=== PATIENT | male | born 1985 | race Caucasian/White ===

== ENCOUNTER → 2020-07-08 07:52 | Outpatient (REF) | payer BC, SELFPAY ==
--- NOTE | ~2020-07-08 | NM_ITS ---
Exercise Myocardial perfusion study Indication: Chest pain to evaluate for myocardial ischemia Technique: The patient was brought in for an exercise perfusion study on 07/08/2020. Patient performed exercise as per Danny protocol and was injected 45 mCi of sestamibi was given intravenously one target HR was achieved. Images were obtained using the SPECT gamma camera interlaced with the gating device. Images were obtained in supine position. Resting perfusion study was performed on 07/09/2020. Patient was administered 45 mCi of sestamibi intravenously at rest. Images were then obtained in supine position. Images obtained with and without CT attenuation. Total DLP 166 mGy-cm. Images were processed with the software and compared side to side in short axis, horizontal long axis and vertical long axis views. Findings: The stress perfusion study showed non attenuated images show minimal thinning of the basal inferior wall of the LV myocardium. Remainder of the LV myocardium is normally perfused. Attenuation corrected images show mildly reduced uptake in the apex of the LV myocardium.. The gated study shows normal LV systolic function with calculated LVEF of 63%. LV cavity is normal in size. The gated study shows normal systolic wall thickening and contraction of all segments. There is no transient ischemic dilation. Resting study shows no clear significant change in perfusion pattern compared to stress perfusion study. Gating at rest reveals normal systolic wall motion with ejection fraction at 56%. The findings are consistent with normal myocardial perfusion. NM/NM baldev perf SPECT rest & str Impression: 1. Normal myocardial perfusion 2. Gated LVEF is 63% 3. Transient ischemic dilatation not present Stress EKG is negative for ischemia
--- NOTE | 2020-07-08 08:00 | CA_ITS ---
Acquisition Time: 2020-07-08 08:22:08 Total Exercise Time: 00:10:27 Test Indications: ABN EKG Medications: SEE CHART Protocol: ADONIS Max HR: 162 BPM 87% of Pred: 186 BPM Max BP: 190/068 mmHG Max Work Load: 12.4 METS Exercise stress test with exercise 10 min 27 sec of Adonis protocol, without anginal symptoms, without arrythmia, with normotensive response to exercise, without EKG changes meeting criteria for ischemia. Nuclear images pending. Test reviewed with Dr Dinh. Referred By: Ibrahima Dela Cruz Overread By: LLOYD FITCH
== END ==
LOC: HO.CARD 07:52
PROVIDERS: Visit Provider Internal Medicine Cardiovascular Disease
DX: R07.9 Chest pain, unspecified (principal)
CPT/HCPCS: 78452; 93016; 93017; 93018; A9500

== ENCOUNTER → 2020-08-07 09:39 | Outpatient (REF) | payer BC, SELFPAY ==
--- NOTE | 2020-08-07 09:47 | CA_ITS ---
Transthoracic Echocardiogram Patient (Last, First, Middle): Tim Morocho, Gender: Male Date of : 1985 Age: 35 Procedure Date: 08/07/2020 Procedure Type: Transthoracic Echocardiogram Location: OP Height: 177.8 cm Weight: 131.09 kg BSA: 2.44 m2 Heart Rate: bpm BP: 130 / 80 mmHg Medical Attendant: JOANN Haley MD: Ibrahima Dela Cruz MD Pan Pusher: Miah Adams MD Symptoms: ABN. ECHO Study Quality: Fair ECG Rhythm: Sinus Conclusions: - 1. Limited echocardiogram with definity was performed, showing normal LV systolic function with no wall motion abnormality Findings Procedure Information The patient receives contrast. Left Ventricle Normal left ventricular size, thickness, and systolic function. The visually estimated ejection fraction is between 60-65%. There is no evidence of regional wall motion abnormalities. Prior Study Comparison No prior study available for comparison. Measurements 2D Systolic Function EF 4C: 78.80 >55% EF 2C: 46.40 >55% EF BiP: 64.20 >55% Updated in Other Vendor System with Status of Final Miah Adams MD electronically signed on 08/07/2020 10:53:24 AM with status of Final
== END ==
LOC: HO.CARD 09:39
PROVIDERS: Visit Provider Internal Medicine Cardiovascular Disease
DX: R93.1 Abnormal findings on diagnostic imaging of heart and coronary circulation (principal)
CPT/HCPCS: 93308; Q9957

== ENCOUNTER 2021-02-12 13:54 | Outpatient (REF) | payer BC, SELFPAY | END 2021-02-12 13:55 | disposition home or self-care (01) | LOC: HO.HMGCLDS 13:54 | PROVIDERS: Visit Provider Internal Medicine | DX: Z20.822 Contact with and (suspected) exposure to COVID-19 (principal) | CPT/HCPCS: C9803; U0003; U0005 ==

== ENCOUNTER 2021-10-09 14:30 | Emergency (ER) | payer BC, SELFPAY ==
--- NOTE | ~2021-10-09 | XR_ITS ---
EXAMINATION: XR CHEST CLINICAL INFORMATION: Dyspnea COMPARISON: None TECHNIQUE: Frontal view of the chest was obtained. FINDINGS: Cardiac leads overlie the chest. The lungs are well expanded. There is no focal consolidation, edema, or effusion. No pneumothorax. The cardiomediastinal silhouette is within normal limits. No acute osseous abnormality. XR/XR chest 1V IMPRESSION: Clear lungs.
[2021-10-09 14:37] VITALS: BP 106/61; BP 110/74; PULSE 87; PULSE 93; RESP 16; TEMP 36.9; O2SAT 95; O2SAT 98; BMI 39.5
--- NOTE | 2021-10-09 14:42 | ECG_ITS ---
Test Reason : Dizziness Blood Pressure : / mmHG Vent. Rate : 081 BPM Atrial Rate : 081 BPM P-R Int : 220 ms QRS Dur : 100 ms QT Int : 358 ms P-R-T Axes : 046 -35 034 degrees QTc Int : 415 ms Sinus rhythm with 1st degree A-V block Left axis deviation Minimal voltage criteria for LVH, may be normal variant ( R in aVL ) Abnormal ECG When compared with ECG of 15-MAY-2012 10:59, Vent. rate has increased BY 30 BPM QT has lengthened T wave inversion no longer evident in Lateral leads Referred By: Paty Moyer Electronically Signed By:DEL LEIGH
--- NOTE | 2021-10-09 14:44 | ED_ITS ---
HPI - Weakness General Chief complaint: Arrhythmia/Palpitations Stated complaint: DIZZY Time Seen by Provider: 10/09/21 14:32 Source: patient Mode of arrival: EMS Limitations: no limitations History of Present Illness HPI Narrative: 36 yo male with hx of DM, HTN, vaccinated x 2 for COVID - states his entire family has COVID and he has had cough, fevers since Tuesday. His tests at home are negative. Today since waking up he has felt more short of breath, poor PO intake, dizziness when standing MD Complaint: generalized weakness (URI symptoms, dizziness with standing) Onset (ago): week(s) (1) Duration: intermittent Location: generalized Migration: none Severity: moderate Quality: dull Relieving factors: rest Exacerbating factors: movement Context: other (URI and family members and have COVID) Associated symptoms: fever/chills, loss of appetite and shortness of breath Related Data Previous Rx's Medication Instructions Recorded ondansetron 4 mg disintegrating 4 mg PO Q8H PRN nausea and 10/09/21 tablet vomiting #20 tabs Allergies Allergy/AdvReac Type Severity Reaction Status Date / Time Sulfa (Sulfonamide Allergy Unknown Verified 08/04/12 00:00 Antibiotics) sulfamethoxazole Allergy Unknown UNKNOWN Unverified 11/01/19 15:42 [From BACTRIM] trimethoprim [From BACTRIM] Allergy Unknown UNKNOWN Unverified 11/01/19 15:42 Review of Systems Review of Systems: Constitutional : pos Fever, No Chills, pos Fatigue, No Malaise ENT/Mouth : No sore throat, No Rhinorrhea Eyes: No Eye Pain, No Swelling, No Redness Cardiovascular : No Chest Pain, pos SOB, No Dyspnea on Exertion, No Edema, No Palpitations Respiratory : pos Cough, No Sputum, No Wheezing Gastrointestinal : pos Nausea, No Vomiting, No Diarrhea, No Constipation, No abdominal Pain, No Hematochezia, No Melena Genitourinary : No Dysuria, No Urinary Frequency, No Hematuria, Musculoskeletal : No joint pain, No Myalgias, No Joint Swelling Skin : No Skin Lesions, No rash Neuro : pos Weakness, No Numbness, pos Dizziness, No Headache Psych : No Anxiety/Panic, No Depression Heme/Lymph: No Bruising, No Bleeding,No Lymphadenopathy Endocrine : No Polyuria, No Polydipsia All other systems reviewed and are negative PMFSH Past Medical History Attestation statement: The following information was validated with the patient. Medical History Diabetes HTN (hypertension) Social History Social History (Updated 10/09/21 @ 14:51 by Paty Moyer DO) Patient Tobacco Use Status: Never used Tobacco Advance Directives: No Advance Directives Information Provided: No Physical Exam Vital Signs: Vital Signs: Last Vital Signs Temp 98.5 F 10/09/21 14:37 Pulse 87 10/09/21 14:37 Resp 16 10/09/21 14:37 BP 106/61 10/09/21 14:37 Pulse Ox 95 10/09/21 14:37 O2 Del Method 10/09/21 14:37 BMI result Body Mass Index 39.5 Appearance: Alert. Oriented X3. No acute distress. Eyes: Pupils equal, round and reactive to light. ENT: Pharynx normal. Neck: Normal inspection. Neck supple. CVS: Normal heart rate and rhythm. Pulses normal. Respiratory: No respiratory distress. Breath sounds normal. Abdomen: Soft and non-tender. Skin: Skin warm and dry. Normal skin color. Normal skin turgor. Extremities: No lower extremity edema. No calf ttp Neuro: Oriented X 3. No motor deficit. No sensory deficit. Course Course Course Narrative: + COVID today is day 5 of symptoms CXR negative, ddimer negative, EKG nonischemic, trop negative, no hypoxia discussed paxlovid wants to read the EAU sheet - after reading sheet declines paxlovid treatment MDM - Weakness MDM Narrative Medical decision making narrative: 36 yo male with hx of HTN, DM vaccinated for COVID x 2, here with c/o URI symptoms since Tuesday with exposure to family members with COVID though his home tests are negative. He reports waking early this AM feeling dizzy when standing and feels short of breath. He hasn't been eating well. At this time will obtain labs, EKG, troponin/ddimer. IVF, tylenol/motrin. COVID test. Suspect his symptoms are due to COVID. He is not toxic has no other neuro symptoms to suggest posterior stroke. Lab Data Result diagrams: 10/09/21 14:49 10/09/21 14:50 Labs: Lab Results 10/09/21 10/09/21 10/09/21 Range/Units 14:49 14:49 14:49 WBC 4.2 L (4.8-10.8) X10*3/uL RBC 6.10 H (4.60-5.80) X10*6/uL Hgb 18.0 (14.0-18.0) g/dl Hct 49.1 (42.0-52.0) % MCV 80.5 (80.0-98.0) fL MCH 29.5 (27.0-33.0) pg MCHC 36.7 H (31.0-36.0) g/dl RDW 11.7 (11.0-16.0) % Plt Count 210 (160-400) X10*3/uL MPV 11.9 (9.4-12.4) fL Immature Gran % (Auto) 0.2 (0.0-0.4) % Neut % (Auto) 53.2 (45-73) % Lymph % (Auto) 31.5 (20-40) % [place] % (Auto) 13.0 H (2-11) % Eos % (Auto) 1.4 (0-4) % Baso % (Auto) 0.7 (0-2) % Lymph # (Auto) 1.3 (1.2-4.9) X10*3/uL [place] # (Auto) 0.6 (0.1-1.2) X10*3/uL Eos # (Auto) 0.1 (0.0-0.4) X10*3/uL Baso # (Auto) 0.0 (0.0-0.2) X10*3/uL Abs Immat Gran (auto) 0.01 (0.00-0.03) X10*3/uL Absolute Neuts (auto) 2.2 (2.0-8.3) x10*3/uL Absolute Nucleated RBC 0.000 (0.0-0.012) X10*3/uL Nucleated RBC % (auto) 0.0 (0.0-0.2) /100WBC D-Dimer High Sensitivty < 150 NG/ML Sodium (135-145) mmol/L Potassium (3.3-5.1) mmol/L Chloride (96-108) mmol/L Carbon Dioxide (22-29) mmol/L Anion Gap (12-20) BUN (9-16) mg/dL Creatinine (0.5-1.4) mg/dL Estim Creat Clear Calc Estimated GFR POC Glucose (60-115) mg/dL Random Glucose (60-115) mg/dL Calcium (8.4-10.2) mg/dL Magnesium (1.6-2.6) mg/dL Total Bilirubin (0.0-1.0) mg/dL Direct Bilirubin (0.0-0.5) mg/dL AST (5-37) U/L ALT (0-40) U/L Alkaline Phosphatase (39-117) U/L Troponin I High Sens < 3.5 (<3.5-35.0) ng/L Total Protein (6.5-8.0) g/dL Albumin (3.5-5.0) g/dL COVID-19 (PORFIRIO) (Negative) COVID-19 Clin Com 10/09/21 10/09/21 10/09/21 Range/Units 14:49 14:50 16:08 WBC (4.8-10.8) X10*3/uL RBC (4.60-5.80) X10*6/uL Hgb (14.0-18.0) g/dl Hct (42.0-52.0) % MCV (80.0-98.0) fL MCH (27.0-33.0) pg MCHC (31.0-36.0) g/dl RDW (11.0-16.0) % Plt Count (160-400) X10*3/uL MPV (9.4-12.4) fL Immature Gran % (Auto) (0.0-0.4) % Neut % (Auto) (45-73) % Lymph % (Auto) (20-40) % [facility] % (Auto) (2-11) % Eos % (Auto) (0-4) % Baso % (Auto) (0-2) % Lymph # (Auto) (1.2-4.9) X10*3/uL [facility] # (Auto) (0.1-1.2) X10*3/uL Eos # (Auto) (0.0-0.4) X10*3/uL Baso # (Auto) (0.0-0.2) X10*3/uL Abs Immat Gran (auto) (0.00-0.03) X10*3/uL Absolute Neuts (auto) (2.0-8.3) x10*3/uL Absolute Nucleated RBC (0.0-0.012) X10*3/uL Nucleated RBC % (auto) (0.0-0.2) /100WBC D-Dimer High Sensitivty NG/ML Sodium 134 L (135-145) mmol/L Potassium 3.8 (3.3-5.1) mmol/L Chloride 98 (96-108) mmol/L Carbon Dioxide 23 (22-29) mmol/L Anion Gap 17 (12-20) BUN 14 (9-16) mg/dL Creatinine 1.02 (0.5-1.4) mg/dL Estim Creat Clear Calc 134.1 Estimated GFR > 60 POC Glucose 274 H (60-115) mg/dL Random Glucose 435 H* (60-115) mg/dL Calcium 9.6 (8.4-10.2) mg/dL Magnesium 1.8 (1.6-2.6) mg/dL Total Bilirubin 2.1 H (0.0-1.0) mg/dL Direct Bilirubin 0.7 H (0.0-0.5) mg/dL AST 28 (5-37) U/L ALT 43 H (0-40) U/L Alkaline Phosphatase 72 (39-117) U/L Troponin I High Sens (<3.5-35.0) ng/L Total Protein 7.8 (6.5-8.0) g/dL Albumin 4.4 (3.5-5.0) g/dL COVID-19 (PORFIRIO) Positive A (Negative) COVID-19 Clin Com See Note ECG Data Attestation: I personally reviewed and interpreted this ECG as follows: ECG interpretation date: 10/09/21 ECG interpretation time: 15:03 Interpretation: Rate: 81 Rhythm: NSR with 1st degree AVB [place]: left, LVH Normal P waves. 1st degree AVB [place]. Normal QRS complex. ST T wave : normal no MINOR qTC: normal no MINOR prior studies: no acute ischemia The study has been interpreted contemporaneously by me. Discharge Plan Discharge Clinical Impression: COVID-19, Acute hyperglycemia Instructions: Diabetic Hyperglycemia (ED), COVID-19 (Coronavirus Disease 2019) (ED) Additional Instructions: return to ED for any worsening symptoms or concerns no covid pneumonia blood clot test negative if you become so short of breath you cannot walk to your own bathroom please seek medical care Prescriptions: New ondansetron 4 mg tablet,disintegrating 4 mg PO Q8H PRN (Reason: nausea and vomiting) Qty: 20 0RF Stand Alone Forms: Work/School Release
[2021-10-09] MEDS: Lactated Ringers 1,000 ML 999 ML IV (14:51)
[2021-10-09] MEDS: ondansetron HCL 4 MG/2 ML VIAL IVPUSH (14:54)
[2021-10-09] MEDS: Acetaminophen 325 MG TABLET 650 MG PO (14:55)
[2021-10-09 14:56] LABS: MANUAL DIFF FLAG NO
[2021-10-09 14:57] LABS: Basophils Percent Auto 0.7 % (0-2); Eosinophils Absolute Auto 0.1 X10*3/uL (0.0-0.4); Eosinophils Percent Auto 1.4 % (0-4); Hematocrit 49.1 % (42.0-52.0); Imm Gran Abs Auto 0.01 X10*3/uL (0.00-0.03); Imm Gran Pct Auto 0.2 % (0.0-0.4); Lymphocytes Absolute Auto 1.3 X10*3/uL (1.2-4.9); Lymphocytes Percent Auto 31.5 % (20-40); Mean Corpuscular HGB Conc 36.7 g/dl (31.0-36.0); Mean Corpuscular Hemoglobin 29.5 pg (27.0-33.0); Mean Corpuscular Volume 80.5 fL (80.0-98.0); Mean Platelet Volume 11.9 fL (9.4-12.4); Monocytes Absolute Auto 0.6 X10*3/uL (0.1-1.2); Neutrophils Absolute Auto 2.2 x10*3/uL (2.0-8.3); Neutrophils Percent Auto 53.2 % (45-73); Platelet Count 210 X10*3/uL (160-400); Red Cell Distribution Width 11.7 % (11.0-16.0); White Blood Count 4.2 X10*3/uL (4.8-10.8)
[2021-10-09 15:08] LABS: COVID-19 Test Positive (Negative); IDNOW Serial# 16C4AD1C
[2021-10-09 15:16] LABS: Alanine Aminotransferase 43 U/L (0-40); Albumin Level 4.4 g/dL (3.5-5.0); Alkaline Phosphatase 72 U/L (39-117); Anion Gap 17 (12-20); Aspartate Amino Transferase 28 U/L (5-37); Bilirubin Direct 0.7 mg/dL (0.0-0.5); Bilirubin Total 2.1 mg/dL (0.0-1.0); Blood Urea Nitrogen 14 mg/dL (9-16); Calcium 9.6 mg/dL (8.4-10.2); Carbon Dioxide 23 mmol/L (22-29); Chloride 98 mmol/L (96-108); Creatinine Clr Calc Pharmacy 134.1; Estimated Glomerular Filt Rate > 60; Glucose Random 435 mg/dL (60-115); Magnesium 1.8 mg/dL (1.6-2.6); Potassium 3.8 mmol/L (3.3-5.1); Sodium 134 mmol/L (135-145); Total Protein 7.8 g/dL (6.5-8.0)
[2021-10-09 15:17] LABS: Troponin-I High Sensitivity < 3.5 ng/L (<3.5-35.0)
[2021-10-09] MEDS: Insulin Regular, Human 100 UNIT/ML 3 ML VIAL IVPUSH (15:42)
[2021-10-09 16:05] LABS: D Dimer High Sensitivity < 150 NG/ML
[2021-10-09 16:13] LABS: Glucose, Whole Blood 274 mg/dL (60-115)
[2021-10-09 17:20] VITALS: BP 127/75; PULSE 74; RESP 14; TEMP 528.5; TEMP 983.3; O2SAT 98
== END 2021-10-09 17:25 | disposition home or self-care (01) ==
PROVIDERS: Emergency Provider Emergency Medicine
DX: U07.1 COVID-19 (principal); R42 Dizziness and giddiness; R00.2 Palpitations; Z79.899 Other long term (current) drug therapy
CPT/HCPCS: 71045; 80048; 80076; 82947; 83735; 84484; 85025; 85379; 87635; 93005; 96361; 96374; 96375; 99284; J2405

== ENCOUNTER 2022-08-17 22:29 | Emergency (ER) | payer BC, SELFPAY ==
[2022-08-17 22:39] VITALS: BP 133/74; PULSE 66; RESP 16; TEMP 36.3; O2SAT 98; BMI 38.6
--- NOTE | 2022-08-17 23:16 | ED.BACK ---
HPI - Back Pain/Injury General Chief Complaint: Back Pain/Injury Stated Complaint: Back pain Time Seen by Provider: 08/17/22 23:06 Source: patient Mode of arrival: ambulatory Limitations: no limitations History of Present Illness HPI Narrative: Patient comes to the emergency room complaining of intermittent lumbar pain shooting towards the left heel. Patient states that for last 3 days he has been having worsening pain. Patient denies numbness or tingling or loss of motor function. Patient denies urinary/fecal incontinence or retention. Patient states that every time that he abducts the hip, he has shooting pain running from the buttocks on the left down to the left heel Related Data Previous Rx's Medication Instructions Recorded ondansetron 4 mg disintegrating 4 mg PO Q8H PRN nausea and 10/09/21 tablet vomiting #20 tabs cyclobenzaprine 10 mg tablet 10 mg PO TID PRN muscle spasm #10 08/17/22 tabs tramadol 50 mg tablet 50 mg PO BID PRN pain #7 tabs 08/17/22 Allergies Allergy/AdvReac Type Severity Reaction Status Date / Time Sulfa (Sulfonamide Allergy Unknown Unknown Verified 08/17/22 22:38 Antibiotics) sulfamethoxazole Allergy Unknown UNKNOWN Unverified 11/01/19 15:42 [From BACTRIM] trimethoprim [From BACTRIM] Allergy Unknown UNKNOWN Unverified 11/01/19 15:42 Review of Systems Review of Systems: Constitutional : No Weight loss, No Fever, No Chills, No Night Sweats, No Fatigue, No Malaise ENT/Mouth : No Hearing loss, No Ear Pain, No Nasal Congestion, No Sinus Pain, No Hoarseness, No sore throat, No Rhinorrhea, No Swallowing Difficulty Eyes: No Eye Pain, No Swelling, No Redness, No Foreign Body, No Discharge, No Vision Changes Cardiovascular : No Chest Pain, No SOB, No Dyspnea on Exertion, No Orthopnea, No Edema, No Palpitations Respiratory : No Cough, No Sputum, No Wheezing, No Smoke Exposure, No Dyspnea Gastrointestinal : No Nausea, No Vomiting, No Diarrhea, No Constipation, No abdominal Pain, No Hematochezia, No Melena Genitourinary : no irregular bleeding, No Dysuria, No Urinary Frequency, No Hematuria, No Urinary Incontinence, No Urgency, No Flank Pain, No Urinary Flow Changes, No Hesitancy Musculoskeletal : Complaining of pain radiating towards the left heel, shock-like sensations, No joint pain, No Myalgias, No Joint Swelling Skin : No Skin Lesions, No rash Neuro : No Weakness, No Numbness, No Paresthesias, No Loss of Consciousness, No Dizziness, No Headache Psych : No Anxiety/Panic, No Depression, No SI/HI/AH/VH, No Social Issues, Heme/Lymph: No Bruising, No Bleeding,No Lymphadenopathy Endocrine : No Polyuria, No Polydipsia, No Temperature Intolerance [facility] Past Medical History Medical History Diabetes HTN (hypertension) Social History Social History (Updated 10/09/21 @ 14:51 by Paty Moyer DO) Patient Tobacco Use Status: Never used Tobacco Advance Directives: No Advance Directives Information Provided: No Physical Exam Vital Signs: Vital Signs: Last Vital Signs Temp 97.4 F 08/17/22 22:39 Pulse 66 08/17/22 22:39 Resp 16 08/17/22 22:39 BP 133/74 08/17/22 22:39 Pulse Ox 98 08/17/22 22:39 O2 Del Method Room Air 08/17/22 22:39 BMI result Body Mass Index 38.6 Const: Other: Appearance: Alert. Oriented X3. No acute distress. Eyes: Pupils equal, round and reactive to light. ENT: Pharynx normal. Neck: Normal inspection. Neck supple. No lymph nodes noted. No crepitus CVS: Normal heart rate and rhythm. Pulses normal. Normal S1 and S2 Respiratory: No respiratory distress. Breath sounds normal. No Wheezing. No rales Abdomen: Soft and nontender. No rigidity. No distention. Back: Positive straight leg raise test on the left Skin: Skin warm and dry. Normal skin color. Normal skin turgor. Extremities: No lower extremity edema. No Lacerations. No Rash Neuro: Oriented X 3. No motor deficit. No sensory deficit. Moving all extremities. No slurred speech. CN 2 through 12 grossly intact Psych: calm, cooperative, normal affect Medical Decision Making Medical Decision Making MDM Narrative: -discussed with the patient that he likely has sciatica versus herniated discs. -patient given IM dexamethasone and morphine. -patient will be given a prescription for tramadol and muscle relaxants. I discussed with the patient that the medications will not cure him. This is just pain reliever. Patient will need physical therapy and eventually may need an MRI -patient agreeable with plan. -patient ambulatory, does not have any red flag symptoms, cauda equina not suspected Differential Diagnosis Differential Diagnoses: The differential diagnosis associated with the presentation includes (Sciatica, herniated disc, musculoskeletal pain, lumbar radiculopathy, piriformis syndrome) Discharge Plan Discharge Clinical Impression: Sciatica Patient Disposition: Home, Self-Care Instructions: Sciatica (ED) Additional Instructions: Please follow-up with your primary care physician tomorrow. If you have any worsening or new symptoms, please return to the emergency room or call 911 Prescriptions: New tramadol 50 mg tablet 50 mg PO BID PRN (Reason: pain) Qty: 7 0RF cyclobenzaprine 10 mg tablet 10 mg PO TID PRN (Reason: muscle spasm) Qty: 10 0RF No Action ondansetron 4 mg tablet,disintegrating 4 mg PO Q8H PRN (Reason: nausea and vomiting) Qty: 20 0RF
[2022-08-17 23:49] VITALS: RESP 19
--- NOTE | 2022-08-18 00:05 | PC.NURSE ---
Discharge instructions given and explained to pt No apparent distress gait steady and independent aox4 all of pt's questions answered
== END 2022-08-18 00:06 | disposition home or self-care (01) ==
PROVIDERS: Emergency Provider Emergency Medicine
DX: M54.30 Sciatica, unspecified side (principal)
CPT/HCPCS: 96372; 99284; J1100; J2270

== ENCOUNTER 2022-09-09 20:23 | Emergency (ER) | payer BC, SELFPAY ==
[2022-09-09 20:29] VITALS: BP 152/86; PULSE 88; RESP 19; TEMP 36.4; O2SAT 98; BMI 38.7
--- NOTE | 2022-09-09 20:43 | ED.GENADULT ---
HPI - General Adult General Chief complaint: Back Pain/Injury Stated complaint: radiating pain down lower back Time Seen by Provider: 09/09/22 23:41 Source: patient Mode of arrival: ambulatory Limitations: no limitations History of Present Illness HPI narrative: Patient is a 37-year-old male who presents emergency department for evaluation of persistent back pain. Reports onset of pain to be approximately 4-6 weeks ago. He was seen in the emergency department initially about 4 weeks ago, received prescription for tramadol and cyclobenzaprine. He followed up with his primary care doctor a few days later who discontinued these medications and he began taking oxycodone, baclofen, a Medrol Dosepak, and naproxen. He states that for the past week he has also been taking ibuprofen in addition to the medications. He reports that the only medication that has made any impact on his pain was the oxycodone which only helped a small amount, and he no longer has a prescription for this. Pain is mostly localized to the left buttock/hip and radiates down the leg into the heel. He has an MRI and an appointment with his PCP scheduled for this coming week. Denies recent precipitating injury, fevers, chills, burning with micturition, urinary frequency/urgency/hesitancy, bladder or bowel dysfunction, numbness or tingling of the perineum or bilateral legs. Denies any recent surgical procedures, any known immune compromising conditions, personal history of cancer, or IV drug usage. Related Data Previous Rx's Medication Instructions Recorded ondansetron 4 mg disintegrating 4 mg PO Q8H PRN nausea and 10/09/21 tablet vomiting #20 tabs cyclobenzaprine 10 mg tablet 10 mg PO TID PRN muscle spasm #10 08/17/22 tabs tramadol 50 mg tablet 50 mg PO BID PRN pain #7 tabs 08/17/22 oxycodone 5 mg tablet 5 mg PO Q6H PRN pain #10 tabs 09/10/22 Allergies Allergy/AdvReac Type Severity Reaction Status Date / Time Sulfa (Sulfonamide Allergy Unknown Unknown Verified 09/09/22 20:29 Antibiotics) sulfamethoxazole Allergy Unknown UNKNOWN Verified 09/09/22 20:29 [From BACTRIM] trimethoprim [From BACTRIM] Allergy Unknown UNKNOWN Verified 09/09/22 20:29 Review of Systems Review of Systems: Constitutional: No weight loss, fever, chills, weakness or fatigue. HEENT: No visual loss, blurred vision, double vision. No hearing loss, sneezing, congestion, runny nose or sore throat. Skin: No rash or itching. Cardiovascular: No chest pain, chest pressure or chest discomfort. No palpitations or pedal edema. Respiratory: No shortness of breath, cough or sputum production. Gastrointestinal: No anorexia, nausea, vomiting or diarrhea. No abdominal pain or blood in stool. Genitourinary: No burning micturition. No urinary frequency or incontinence. Neurologic: No headache, dizziness, syncope, unilateral weakness, ataxia, numbness or tingling in the extremities. No change in bowel or bladder control. Musculoskeletal: + Back pain as noted in HPI. No joint pain or stiffness. Hematologic: No bleeding or bruising. Lymphatics: No enlarged lymph nodes. Psychiatric:No depression or anxiety. Endocrine: No reports of sweating. No cold or heat intolerance. No polyuria or polydipsia. Yes all other systems are reviewed and are negative PMFSH Past Medical History Attestation statement: The following information was validated with the patient. Source: old records reviewed Medical History Diabetes HTN (hypertension) Social History Social History (Updated 10/09/21 @ 14:51 by Paty Moyer DO) Alcohol intake: never Patient Tobacco Use Status: Never used Tobacco Advance Directives: No Advance Directives Information Provided: Yes Physical Exam ED Vital Signs: Vital Signs - 24 hr 09/09/22 20:29 09/10/22 00:59 Temperature 97.5 F 97.8 F Pulse Rate 88 71 Respiratory Rate 19 16 Blood Pressure 152/86 H 155/101 H Pulse Oximetry 98 96 Oxygen Delivery Method Room Air Room Air BMI result Body Mass Index 38.7 Appearance: Alert.?Oriented to person, place and time. No acute distress.?Normal affect. Eyes: Pupils equal, round and reactive to light.? ENT: Pharynx normal.?? Neck: Normal inspection.? Neck supple.?? CVS: Heart sounds normal. Normal heart rate and rhythm.? Pulses normal; bilateral radial pulses 2+, bilateral posterior tibial/dorsalis pedis pulses 2+.? Respiratory: No respiratory distress.? Lung sounds clear to auscultation bilaterally?? Abdomen: Soft and non-tender. Normoactive bowel sounds. No pulsatile mass.?? Skin: Skin warm and dry.? Normal skin color.? Normal skin turgor.?? Extremities: No lower extremity edema.? No calf ttp? Back: + mild paraspinal muscular tenderness from lumbar region to coccyx. No CVA tenderness. No midline spinal tenderness, step-off's, or deformity. Full ROM intact in bilateral lower extremities. Straight leg test negative on right; Straight leg test positive on left. No rashes, lesions, areas of induration or fluctuance, or signs of infection noted., Neuro: Moves all extremities spontaneously. 5/5 strength in hip extension/flexion, abduction, adduction. Sensation to light touch intact bilaterally. Patellar and Achilles reflex 2+ bilaterally. No ataxia, gait normal and steady.. No focal neuro deficits. Course Course Course Narrative: This is an RME: Additional HPI, ROS, PE not included below will be deferred to primary provider. This is a [id number]-male presenting to the ER with complaints of left sided low back pain radiating into his left leg. No urinary symptoms. No red flag back sxs. Medical Decision Making Medical Decision Making MDM Narrative: Patient is a 37-year-old male with past medical history of hypertension and diabetes presenting to emergency department for persistent low back pain. I reviewed his prior ER visits from 08/17/2022. He is overall well-appearing, ambulatory with an antalgic gait. He drove himself here today. Pain is most consistent with radiculopathy, although I did advise him we cannot completely exclude herniated disc. On neurological exam there are no deficits. Not consistent with spinal fracture, spinal infection, epidural abscess, AAA, epidural abscess, or dissection. No high risk past medical history including incontinence, fever, immunosuppression, recent surgery or lumbar puncture, coagulopathy, significant trauma, recent unintentional weight loss, pulsatile mass, history of cancer, history of TB, history of IV drug use that would warrant MRI or CT. Not consistent with pyelonephritis, urinary tract infection, renal calculi, appendicitis, diverticulitis. On exam no concern for cauda equina syndrome. No imaging is currently indicated at this time. Given he has been taking ibuprofen in addition to naproxen I would defer the use of intramuscular or IV Toradol at this time. I educated patient that he should not be taking a combination of NSAIDs, advised to stick with the naproxen only. Discussed with patient plan of care, will send a short prescription for oxycodone to his pharmacy as this was our has been the only thing to help. Advised he will need to follow up with his primary care provider for any further pain management, or possible referral to Pain Management/Physical therapy. Reviewed worrisome signs and symptoms that would warrant re-evaluation in the emergency department. All questions answered. Differential Diagnosis Differential Diagnoses: The differential diagnosis associated with the presentation includes (As noted above) External Record Review External record reviewed: Other (Reviewed [facility], prior to prescribing oxycodone, no conflicts) Tests considered The following testing was considered but not selected: Considered CT/MRI of the lumbar spine, however imaging was deferred after obtaining history and physical examination. See above for further detail Prescription Management I considered prescription management with: Pain Medication Discharge Plan Discharge Clinical Impression: Lumbar radiculopathy Patient Disposition: Home, Self-Care Instructions: Lumbar Radiculopathy (ED), Lower Back Exercises (ED) Additional Instructions: As discussed, it is important to follow-up with your primary care provider for further management, and to have your MRI obtained as scheduled. I have sent a short prescription for oxycodone to your pharmacy. This is a narcotic medication, it may be addictive. It may also make you drowsy. He should not drive, drink alcohol, or work while taking this medication. Prescriptions: New oxycodone 5 mg tablet 5 mg PO Q6H PRN (Reason: pain) Qty: 10 0RF Rx Instructions: Partial Fill upon patient request. No Action ondansetron 4 mg tablet,disintegrating 4 mg PO Q8H PRN (Reason: nausea and vomiting) Qty: 20 0RF tramadol 50 mg tablet 50 mg PO BID PRN (Reason: pain) Qty: 7 0RF cyclobenzaprine 10 mg tablet 10 mg PO TID PRN (Reason: muscle spasm) Qty: 10 0RF Referrals: Physician,Unknown J [Primary Care Provider] - Interventions: ED Discharge Assessment Last Done: 09/10/22 00:59 Discharge Date/Time: 09/10/22 00:59
[2022-09-10 00:59] VITALS: BP 155/101; PULSE 71; RESP 16; TEMP 36.6; O2SAT 96
== END 2022-09-10 00:59 | disposition home or self-care (01) ==
PROVIDERS: Emergency Provider Emergency Medicine
DX: M54.16 Radiculopathy, lumbar region (principal); M54.50 Low back pain, unspecified; I10 Essential (primary) hypertension; Z79.899 Other long term (current) drug therapy
CPT/HCPCS: 99282; 99283

== ENCOUNTER 2023-08-31 20:46 | Emergency (ER) | payer BC, SELFPAY ==
--- NOTE | 2023-08-31 | ECG_ITS ---
Test Reason : HEADACHE Blood Pressure : / mmHG Vent. Rate : 083 BPM Atrial Rate : 083 BPM P-R Int : 204 ms QRS Dur : 090 ms QT Int : 362 ms P-R-T Axes : 057 -32 070 degrees QTc Int : 425 ms Normal sinus rhythm Possible Left atrial enlargement Left axis deviation Minimal voltage criteria for LVH, may be normal variant ( R in aVL ) Abnormal ECG When compared with ECG of 09-OCT-2021 14:49, No significant change was found Referred By: Generic ED Physician Electronically Signed By:ESPERANZA YODER MD
[2023-08-31 21:26] VITALS: BP 139/84; PULSE 79; RESP 18; TEMP 36.3; O2SAT 98; BMI 41.0
[2023-08-31 22:01] LABS: MANUAL DIFF FLAG NO
[2023-08-31 22:03] LABS: Basophils Absolute Auto 0.1 X10*3/uL (0.0-0.2); Eosinophils Absolute Auto 0.3 X10*3/uL (0.0-0.4); Eosinophils Percent Auto 3.4 % (0-4); Hematocrit 41.9 % (42.0-52.0); Hemoglobin 15.4 g/dl (14.0-18.0); Imm Gran Abs Auto 0.04 X10*3/uL (0.00-0.03); Imm Gran Pct Auto 0.5 % (0.0-0.4); Lymphocytes Absolute Auto 2.4 X10*3/uL (1.2-4.9); Lymphocytes Percent Auto 27.7 % (20-40); Mean Corpuscular HGB Conc 36.8 g/dl (31.0-36.0); Mean Corpuscular Hemoglobin 30.3 pg (27.0-33.0); Mean Corpuscular Volume 82.5 fL (80.0-98.0); Mean Platelet Volume 12.3 fL (9.4-12.4); Monocytes Absolute Auto 0.7 X10*3/uL (0.1-1.2); Monocytes Percent Auto 7.9 % (2-11); Neutrophils Absolute Auto 5.2 x10*3/uL (2.0-8.3); Neutrophils Percent Auto 59.5 % (45-73); Platelet Count 214 X10*3/uL (160-400); Red Blood Count 5.08 X10*6/uL (4.60-5.80); Red Cell Distribution Width 11.9 % (11.0-16.0); White Blood Count 8.7 X10*3/uL (4.8-10.8)
--- NOTE | 2023-08-31 22:07 | MHC.EDTECH ---
Patient ekg taken and was read by Provider ,blood drawn and sent to lab .
[2023-08-31 22:19] LABS: Alanine Aminotransferase 33 U/L (0-40); Albumin Level 4.1 g/dL (3.5-5.0); Alkaline Phosphatase 68 U/L (39-117); Anion Gap 17 (12-20); Aspartate Amino Transferase 21 U/L (5-37); Bilirubin Direct 0.1 mg/dL (0.0-0.5); Bilirubin Total 0.5 mg/dL (0.0-1.0); Blood Urea Nitrogen 11 mg/dL (9-16); Calcium 9.2 mg/dL (8.4-10.2); Carbon Dioxide 23 mmol/L (22-29); Chloride 102 mmol/L (96-108); Creatinine Clr Calc Pharmacy 159.1; Estimated Glomerular Filt Rate > 60; Glucose Random 226 mg/dL (60-115); Lipase 34 U/L (8-78); Potassium 3.7 mmol/L (3.3-5.1); Sodium 138 mmol/L (135-145); Total Protein 7.9 g/dL (6.5-8.0)
[2023-08-31 22:29] LABS: Troponin-I High Sensitivity < 2.7 ng/L (<3.5-35.0)
[2023-09-01 01:32] VITALS: BP 152/92; PULSE 63; RESP 18; TEMP 36.6; O2SAT 98
[2023-09-01 02:53] VITALS: BP 154/98; PULSE 59; RESP 16; TEMP 36.7; O2SAT 97
[2023-09-01 06:11] VITALS: BP 132/98; PULSE 65; RESP 18; TEMP 36.6; O2SAT 97
--- NOTE | 2023-09-01 06:12 | ED_ITS ---
HPI - Headache General Chief Complaint: Headache Stated Complaint: HTN with headache Time Seen by Provider: 09/01/23 06:05 Source: patient Mode of arrival: ambulatory Limitations: no limitations History of Present Illness ED Provider: Dr. Nguyen Cormier HPI Narrative: Patient comes to the emergency room complaining of a migraine headache. Patient has been taking Excedrin without significant relief. The headache has been present for about 3 days. Patient initially thought it was secondary to his blood pressure, at home it was 150/90. Here in the ED, it was 130 systolic but patient continued having headache. Patient states he has history of migraines but does not take anything specific other than Excedrin and Tylenol. Patient has my photophobia, no nausea or vomiting. Related Data Previous Rx's ?Medication ?Instructions ?Recorded ondansetron 4 mg disintegrating 4 mg PO Q8H PRN nausea and 10/09/21 tablet vomiting #20 tabs cyclobenzaprine 10 mg tablet 10 mg PO TID PRN muscle spasm #10 08/17/22 tabs tramadol 50 mg tablet 50 mg PO BID PRN pain #7 tabs 08/17/22 oxycodone 5 mg tablet 5 mg PO Q6H PRN pain #10 tabs 09/10/22 ketorolac 10 mg tablet 10 mg PO Q8H PRN pain #12 tabs 09/01/23 metoclopramide HCl 5 mg tablet 5 mg PO DAILY PRN nausea and 09/01/23 (Reglan) vomiting #12 tabs Allergies Allergy/AdvReac Type Severity Reaction Status Date / Time Sulfa (Sulfonamide Allergy Unknown Unknown Verified 08/31/23 21:32 Antibiotics) sulfamethoxazole Allergy Unknown UNKNOWN Verified 08/31/23 21:32 [From BACTRIM] trimethoprim [From BACTRIM] Allergy Unknown UNKNOWN Verified 08/31/23 21:32 Review of Systems 2 Review of Systems: Constitutional : No Weight loss, No Fever, No Chills, No Night Sweats, No Fatigue, No Malaise ENT/Mouth : No Hearing loss, No Ear Pain, No Nasal Congestion, No Sinus Pain, No Hoarseness, No sore throat, No Rhinorrhea, No Swallowing Difficulty Eyes: No Eye Pain, No Swelling, No Redness, No Foreign Body, No Discharge, No Vision Changes Cardiovascular : No Chest Pain, No SOB, No Dyspnea on Exertion, No Orthopnea, No Edema, No Palpitations Respiratory : No Cough, No Sputum, No Wheezing, No Smoke Exposure, No Dyspnea Gastrointestinal : No Nausea, No Vomiting, No Diarrhea, No Constipation, No abdominal Pain, No Hematochezia, No Melena Genitourinary : no irregular bleeding, No Dysuria, No Urinary Frequency, No Hematuria, No Urinary Incontinence, No Urgency, No Flank Pain, No Urinary Flow Changes, No Hesitancy Musculoskeletal : No joint pain, No Myalgias, No Joint Swelling Skin : No Skin Lesions, No rash Neuro : No Weakness, No Numbness, No Paresthesias, No Loss of Consciousness, No Dizziness, from migraine Headache Psych : No Anxiety/Panic, No Depression, No SI/HI/AH/VH, No Social Issues, Heme/Lymph: No Bruising, No Bleeding,No Lymphadenopathy Endocrine : No Polyuria, No Polydipsia, No Temperature Intolerance [facility] Past Medical History Medical History (Updated 09/01/23 @ 07:05 by Nguyen Cormier MD) Migraine Diabetes HTN (hypertension) Social History Social History (Updated 10/09/21 @ 14:51 by Paty Moyer DO) Alcohol intake: never Patient Tobacco Use Status: Never used Tobacco Smoked in Last 30 Days: No Use of substances other than those prescribed or required for medical reasons: No Advance Directives: No Advance Directives Information Provided: Yes Do you have a plan to hurt others: No Plan Physical Exam 2 Vital Signs: Vital Signs: Last Vital Signs Temp 98 F 09/01/23 06:11 Pulse 65 09/01/23 06:11 Resp 18 09/01/23 06:11 BP 132/98 H 09/01/23 06:11 Pulse Ox 97 09/01/23 06:11 O2 Del Method Room Air 09/01/23 06:11 BMI result Body Mass Index 41.0 Const: Other: Appearance: Alert. Oriented X3. No acute distress. Eyes: Pupils equal, round and reactive to light. [facility] ENT: Pharynx normal. Neck: Normal inspection. Neck supple. No lymph nodes noted. No crepitus CVS: Normal heart rate and rhythm. Pulses normal. Normal S1 and S2 Respiratory: No respiratory distress. Breath sounds normal. No Wheezing. No rales Abdomen: Soft and nontender. No rigidity. No distention. Skin: Skin warm and dry. Normal skin color. Normal skin turgor. Extremities: No lower extremity edema. No Lacerations. No Rash Neuro: Oriented X 3. No motor deficit. No sensory deficit. Moving all extremities. No slurred speech. CN 2 through 12 grossly intact Psych: calm, cooperative, normal affect Medications Administered Generic Name Dose Route Start Last Admin Trade Name Freq PRN Reason Stop Dose Admin Sodium Chloride 1,000 mls @ 999 mls/hr 09/01/23 06:11 09/01/23 06:28 Ns IVCONT 09/01/23 07:11 999 mls/hr .Q1H1M ONE Administration Discontinued Medications Generic Name Dose Route Start Last Admin Trade Name Freq PRN Reason Stop Dose Admin Diphenhydramine HCl 25 mg 09/01/23 06:11 09/01/23 06:29 Diphenhydramine Hcl 50 Mg/Ml Vial IVPUSH 09/01/23 06:12 25 mg ONCE ONE Administration Ketorolac Tromethamine 30 mg 09/01/23 06:11 09/01/23 06:29 Ketorolac Tromethamine 30 Mg/Ml Vial IVPUSH 09/01/23 06:12 30 mg ONCE ONE Administration Metoclopramide HCl 10 mg 09/01/23 06:11 09/01/23 06:29 Metoclopramide Hcl 10 Mg/2 Ml Vial IVPUSH 09/01/23 06:12 10 mg ONCE ONE Administration Medical Decision Making Medical Decision Making [facility] Narrative: -patient being given IV fluids, IV Reglan, Benadryl, Toradol -upon symptomatic improvement, patient may be discharged. -sign-out given to my colleague Dr. Roche Differential Diagnosis Differential Diagnoses: The differential diagnosis associated with the presentation includes (Tension headache, migraine headache, hypertensive urgency) Admission/Observation Consideration of admission/observation: Escalation of care including admission/observation considered (Given patient's level of discomfort upon arrival, and symptoms, observation considered) Lab Data [facility] Lab Attestation statement: I reviewed the patient's lab results. 08/31/23 21:57 08/31/23 21:57 Labs: Lab Results 08/31/23 Range/Units 21:57 WBC 8.7 (4.8-10.8) X10*3/uL RBC 5.08 (4.60-5.80) X10*6/uL Hgb 15.4 (14.0-18.0) g/dl Hct 41.9 L (42.0-52.0) % MCV 82.5 (80.0-98.0) fL MCH 30.3 (27.0-33.0) pg MCHC 36.8 H (31.0-36.0) g/dl RDW 11.9 (11.0-16.0) % Plt Count 214 (160-400) X10*3/uL MPV 12.3 (9.4-12.4) fL Immature Gran % (Auto) 0.5 H (0.0-0.4) % Neut % (Auto) 59.5 (45-73) % Lymph % (Auto) 27.7 (20-40) % [place] % (Auto) 7.9 (2-11) % Eos % (Auto) 3.4 (0-4) % Baso % (Auto) 1.0 (0-2) % Lymph # (Auto) 2.4 (1.2-4.9) X10*3/uL [place] # (Auto) 0.7 (0.1-1.2) X10*3/uL Eos # (Auto) 0.3 (0.0-0.4) X10*3/uL Baso # (Auto) 0.1 (0.0-0.2) X10*3/uL Abs Immat Gran (auto) 0.04 H (0.00-0.03) X10*3/uL Absolute Neuts (auto) 5.2 (2.0-8.3) x10*3/uL Absolute Nucleated RBC 0.000 (0.0-0.012) X10*3/uL Nucleated RBC % (auto) 0.0 (0.0-0.2) /100WBC Sodium 138 (135-145) mmol/L Potassium 3.7 (3.3-5.1) mmol/L Chloride 102 (96-108) mmol/L Carbon Dioxide 23 (22-29) mmol/L Anion Gap 17 (12-20) BUN 11 (9-16) mg/dL Creatinine 0.86 (0.5-1.4) mg/dL Estim Creat Clear Calc 159.1 Estimated GFR > 60 Random Glucose 226 H (60-115) mg/dL Calcium 9.2 (8.4-10.2) mg/dL Total Bilirubin 0.5 (0.0-1.0) mg/dL Direct Bilirubin 0.1 (0.0-0.5) mg/dL AST 21 (5-37) U/L ALT 33 (0-40) U/L Alkaline Phosphatase 68 (39-117) U/L Troponin I High Sens < 2.7 (<3.5-35.0) ng/L Total Protein 7.9 (6.5-8.0) g/dL Albumin 4.1 (3.5-5.0) g/dL Lipase 34 (8-78) U/L Critical Care Time Critical Care Time Critical Care Time: Yes Total Critical Care Time: 30 Attestation: I have personally provided critical care time. Time includes review of lab data, radiology results, discussion with consultants, and monitoring for potential decompensation. Intervention performed as documented. Discharge Plan Discharge Clinical Impression: Migraine Patient Disposition: Home, Self-Care Instructions: Migraine Headache (ED) Additional Instructions: Please follow-up with your primary care physician tomorrow. If you have any worsening or new symptoms, please return to the emergency room or call 911 Prescriptions: New ketorolac 10 mg tablet 10 mg PO Q8H PRN (Reason: pain) Qty: 12 0RF Rx Instructions: Do not take this medication with ibuprofen, naproxen, only Tylenol if needed metoclopramide HCl [Reglan] 5 mg tablet 5 mg PO DAILY PRN (Reason: nausea and vomiting) Qty: 12 0RF Rx Instructions: Take together with ketorolac p.r.n. migraine headache No Action ondansetron 4 mg tablet,disintegrating 4 mg PO Q8H PRN (Reason: nausea and vomiting) Qty: 20 0RF tramadol 50 mg tablet 50 mg PO BID PRN (Reason: pain) Qty: 7 0RF cyclobenzaprine 10 mg tablet 10 mg PO TID PRN (Reason: muscle spasm) Qty: 10 0RF oxycodone 5 mg tablet 5 mg PO Q6H PRN (Reason: pain) Qty: 10 0RF Rx Instructions: Partial Fill upon patient request. Print Language: Setswana
[2023-09-01] MEDS: 0.9 % Sodium Chloride 1,000 ML 999 ML IVCONT (06:28)
[2023-09-01] MEDS: Metoclopramide HCl 10 MG/2 ML VIAL IVPUSH (06:29)
[2023-09-01] MEDS: diphenhydrAMINE HCL 50 MG/ML VIAL 25 MG IVPUSH (06:29)
[2023-09-01] MEDS: Ketorolac Tromethamine 30 MG/ML VIAL IVPUSH (06:29)
[2023-09-01 08:25] VITALS: BP 144/91; PULSE 67; RESP 17; O2SAT 97
--- NOTE | 2023-09-01 09:05 | PC.NURSE ---
Care of Pt assumed at change of shift. Pt is currently resting comfortably with eye closed. NAD noted at this time. Will further assess with Pt is awake.
[2023-09-01 11:01] VITALS: BP 133/88; PULSE 60; RESP 16; TEMP -17.7; TEMP 0; O2SAT 96
== END 2023-09-01 11:01 | disposition home or self-care (01) ==
PROVIDERS: Emergency Medicine; Emergency Provider Emergency Medicine Emergency Medical Services
DX: R51.9 Headache, unspecified (principal); I10 Essential (primary) hypertension; E11.9 Type 2 diabetes mellitus without complications; Z79.899 Other long term (current) drug therapy
CPT/HCPCS: 36415; 80048; 80076; 83690; 84484; 85025; 93005; 96361; 96374; 96375; 99285; J1200; J1885; J2765

== ENCOUNTER → 2023-08-31 21:41 | Outpatient (BNV) | payer BC, SELFPAY | PROVIDERS: Emergency Provider Emergency Medicine Emergency Medical Services; Visit Provider Internal Medicine Cardiovascular Disease | DX: R94.31 Abnormal electrocardiogram [ECG] [EKG] (principal) | CPT/HCPCS: 93010 ==

== ENCOUNTER 2024-04-01 20:53 | Emergency (ER) | payer BC, SELFPAY ==
[2024-04-01 21:03] VITALS: BP 157/96; PULSE 84; RESP 18; TEMP 36.4; O2SAT 98; BMI 38.6
[2024-04-01 21:45] LABS: Eos%MD 2.8 %; Hematocrit 45.2 % (42.0-52.0); Hemoglobin 16.4 g/dl (14.0-18.0); IG%MD 0.4 %; Lymph%MD 29.1 %; Mean Corpuscular HGB Conc 36.3 g/dl (31.0-36.0); Mean Corpuscular Hemoglobin 30.1 pg (27.0-33.0); Mean Corpuscular Volume 83.1 fL (80.0-98.0); Mean Platelet Volume 12.1 fL (9.4-12.4); Mono%MD 8.9 %; Neut%MD 57.8 %; Platelet Count 196 X10*3/uL (160-400); Red Blood Count 5.44 X10*6/uL (4.60-5.80); Red Cell Distribution Width 11.9 % (11.0-16.0); White Blood Count 9.6 X10*3/uL (4.8-10.8)
[2024-04-01 21:56] LABS: Anion Gap 15 (12-20); Blood Urea Nitrogen 9 mg/dL (9-16); Calcium 9.3 mg/dL (8.4-10.2); Carbon Dioxide 22 mmol/L (22-29); Chloride 105 mmol/L (96-108); Creatinine Clr Calc Pharmacy 193.1; Estimated Glomerular Filt Rate > 60; Glucose Random 175 mg/dL (60-115); Potassium 3.8 mmol/L (3.3-5.1); Sodium 138 mmol/L (135-145)
[2024-04-01 22:00] LABS: COVID-19 Test Negative (Negative); IDNOW Serial# 55D5AD1C
[2024-04-01 22:04] LABS: IDNOW Serial# 58CA691E; Influenza A Negative (Negative); Influenza B2 Negative (Negative)
[2024-04-01 22:10] LABS: Band Neutrophils Percent 1 % (3-5); Basophils Abs Manual 0.2 X10*3/uL (0.0-0.2); Basophils Percent Manual 2 % (0-2); Eosinophils Absolute Manual 0.2 X10*3/uL (0.0-0.4); Eosinophils Percent Manual 2 % (0-4); Lymphocytes Absolute Manual 1.8 X10*3/uL (1.2-4.9); Lymphocytes Percent Manual 19 % (20-40); Monocytes Absolute Manual 0.9 X10*3/uL (0.1-1.2); Monocytes Percent Manual 9 % (2-11); Neutrophils Absolute Manual 6.5 X10*3/uL (2.0-8.3); Neutrophils Percent Manual 67 % (45-73)
[2024-04-01 22:12] LABS: Platelet Estimate NORMAL (NORMAL); Platelet Morphology Comment NORMAL; RBC Morphology NORMAL
--- OUTSIDE RECORDS SUMMARY | 2024-04-01 23:26 | XMS_ITS | Encounter Summary ---
Author Organization [employer] Address [address] [place] [address] Care Team Providers Care Cloth Shrinking Tester Name Role Phone Elin Rasheed MD Primary Care Provider [phone] Reason for Visit * Reason Onset Date Comments Med Refill 02/21/2024 Encounter Details Date Type Department Care Team (Late st Contact Info) Description 02/21/2024 Refill [facility] [address] [place] [address] Elin Rasheed MD [address] [place] [address] Social History Tobacco Use Types Packs/Day Years Used Date Smoking Tobacco: Never Smokeless Tobacco: Never Alcohol Use Standard Drinks/Week Comments Never 0 (1 standard drink = 0.6 oz pur e alcohol) Housing Stability Answer Date Recorded What is your housing situation today? I have bereketrocío box 12/04/[address] you li ve. Do you have problems with any of the following? None of the above 12/04/2022 Food Insecurity Answer Date Recorded Within the past 12 months, y ou worried that your food would run out before you got money to buy more: Never True 12/04/2022 Within the past 12 months,th e food you bought just didn't last and you didn't have enough money to get more: Never True Transportation Answer Date Recorded In the past 12 months, has l ack of transportation kept you from medical appts, meetings, work or from getting things needed for daily living? No 04/21/2023 Utilities Answer Date Recorded In the past 12 months, has t he electric, gas, oil or water company threatened to shut off services in your home? No 12/04/2022 Depression Answer Date Recorded Patient Health Questionnaire-2 Score 0 09/15/2022 Sex and Gender Information Value Date Recorded Sex Assigned at Male 12/14/2021 10:14 AM EDT Legal Sex Male 10:14 AM EDT Gender Identity Male 12/14/2021 10:14 AM EDT Sexual Orientation Straight 04/22/2023 8: 36 AM EST documented as of this encounter Plan of Treatment Upcoming Encounters Date Type Department Care Team (Late st Contact Info) Description 04/20/2024 2:30 PM EST Office Visit [facility] [address] [place] [address] [phone] Elin Rasheed MD [address] [place] [phone] documented as of this encounter Visit Diagnoses Not on filedocumented in this encounter Care Teams Cloth Shrinking Tester Relationship Specialty Start Date End Date Elin Rasheed MD [address] [place] [phone] PCP - General Family Medicine 03/26/20 documented as of this encounter
--- OUTSIDE RECORDS SUMMARY | 2024-04-01 23:26 | XMS_ITS | Encounter Summary ---
Author Organization [employer] Address [address] [place] [address] Care Team Providers Care Materials Manager Name Role Phone Elin Rasheed MD Primary Care Provider [phone] Encounter Details Date Type Department Care Team (Late st Contact Info) Description 11/26/2022 Orders Only [facility] [address] [place], [place] [phone] Elin Rasheed MD [address] [place], [place] [phone] Sciatica of left side Social History Tobacco Use Types Packs/Day Years Used Date Smoking Tobacco: Never Smokeless Tobacco: Never Alcohol Use Standard Drinks/Week Comments Never 0 (1 standard drink = 0.6 oz pur e alcohol) Housing Stability Answer Date Recorded What is your housing situation today? I have bereket box 11/23/[address] you li ve. Do you have problems with any of the following? None of the above 11/23/2022 Food Insecurity Answer Date Recorded Within the past 12 months, y ou worried that your food would run out before you got money to buy more: Never True 11/23/2022 Within the past 12 months,th e food you bought just didn't last and you didn't have enough money to get more: Never True 11/2022 Transportation Answer Date Recorded In the past 12 months, has l ack of transportation kept you from medical appts, meetings, work or from getting things needed for daily living? Yes, it has kept me from medical appointments or getting medications. 11/23/2022 Utilities Answer Date Recorded In the past 12 months, has t he electric, gas, oil or water company threatened to shut off services in your home? No 11/23/2022 Depression Answer Date Recorded Patient Health Questionnaire-2 [...] Description 04/20/2024 2:30 PM EST Office Visit [facility] [address] [place] [id number] Elin Rasheed MD [address] [place] [phone] documented as of this encounter Visit Diagnoses Diagnosis Sciatica of left side documented in this encounter Care Teams Materials Manager Relationship Specialty Start Date End Date Elin Rasheed MD [address] [place] [phone] PCP - General Family Medicine 03/26/20 documented as of this encounter
--- OUTSIDE RECORDS SUMMARY | 2024-04-01 23:26 | XMS_ITS | Encounter Summary ---
Author Organization [employer] Address [address] [facility] 7t [place] [address] Care Team Providers Care Air Drier Machine Operator Name Role Phone Elin Rasheed MD Primary Care Provider Reason for Visit * Reason Onset Date Comments Med Refill 07/04/2023 Encounter Details Date Type Department Care Team (Late st Contact Info) Description 07/04/2023 Refill [facility] [address] [place], [place] [phone] Elin Rasheed MD 230 [place] [address] Social History Tobacco Use Types Packs/Day Years Used Date Smoking Tobacco: Never Smokeless Tobacco: Never Alcohol Use Standard Drinks/Week Comments Never 0 (1 standard drink = 0.6 oz pur e alcohol) Housing Stability Answer Date Recorded What is your housing situation today? I have bereket box 12/04/[address] you [...] Description 04/20/2024 2:30 PM EST Office Visit [facility] [address] [place] [address] Elin Rasheed MD [address] [place] [address] documented as of this encounter Visit Diagnoses Not on filedocumented in this encounter Care Teams Air Drier Machine Operator Relationship Specialty Start Date End Date Elin Rasheed MD [address] [place] [address] PCP - General Family Medicine 03/26/20 documented as of this encounter
--- OUTSIDE RECORDS SUMMARY | 2024-04-01 23:26 | XMS_ITS | Encounter Summary ---
Author Organization [employer] Address [address] 7t [place] [address] Care Team Providers Care Construction Pit Worker Name Role Phone Elin Rasheed MD Primary Care Provider [phone] Reason for Visit * Reason Onset Date Comments Med Refill 10/12/2022 Encounter Details Date Type Department Care Team (Late st Contact Info) Description 10/12/2022 Refill [facility] [address] [place] [address] [phone] Elin Rasheed MD [address] [place] [address] [phone] Sciatica of left side Social History Tobacco Use Types Packs/Day Years Used Date Smoking Tobacco: Never Smokeless Tobacco: Never Alcohol Use Standard Drinks/Week Comments Never 0 (1 standard drink = 0.6 oz pur e alcohol) Depression Answer Date Recorded Patient Health Questionnaire-2 [...] Description 04/20/2024 2:30 PM EST Office Visit [facility] [address] [place] [address] [phone] Elin Rasheed MD [address] [place] [address] [phone] documented as of this encounter Visit Diagnoses Diagnosis Sciatica of left side documented in this encounter Care Teams Construction Pit Worker Relationship Specialty Start Date End Date Elin Rasheed MD 230 [place] [address] PCP - General Family Medicine 03/26/20 documented as of this encounter
--- OUTSIDE RECORDS SUMMARY | 2024-04-01 23:26 | XMS_ITS | Encounter Summary ---
Author Organization [employer] Address [address] [facility] [address] 7t [place] [address] Care Team Providers Care Glass Finisher Name Role Phone Elin Rasheed MD Primary Care Provider [phone] Reason for Visit * Reason Onset Date Comments Prior Authorization 03/21/2024 PA: Phan rodríguez Encounter Details Date Type Department Care Team ([facility] st Contact Info) Description 03/21/2024 Telephone [facility] 230 [place], [place] [phone] Elin Rasheed MD 230 [place] [address] Prior Authorization (PA: Mallory) Social History Tobacco Use Types Packs/Day Years [...] AM EST documented as of this encounter Miscellaneous Notes * Telephone Encounter - Lakeshia Handy - 03/21/2024 10:53 AM EST Call Was Made to [facility]) at . To Check status. Original PA was denied. PA was resubmitted over the phone and was approved. Approval Dates: 02/20/24- 03/21/2025. Approval will be faxed to office and will be forwarded to scanning. documented in this encounter Plan of Treatment Upcoming Encounters Date Type Department Care Team (Late st Contact Info) Description 04/20/2024 2:30 PM EST Office Visit [facility] [address] [place] [address] Elin Rasheed MD 230 [place] [address] documented as of this encounter Visit Diagnoses Not on filedocumented in this encounter Care Teams Glass Finisher Relationship Specialty Start Date End Date Elin Rasheed MD 230 [place] [address] PCP - General Family Medicine 03/26/20 documented as of this encounter
--- OUTSIDE RECORDS SUMMARY | 2024-04-01 23:26 | XMS_ITS | Encounter Summary ---
Author Organization [employer] Address [address] [facility] 7t [place] [address] Care Team Providers Care Land Classifier Name Role Phone Elin Rasheed MD Primary Care Provider [phone] Reason for Visit * Reason Onset Date Comments Prior Authorization 03/06/2024 BCBS (FEP) P A: Trulicity Encounter Details Date Type Department Care Team ([facility] st Contact Info) Description 03/06/2024 Telephone [facility] 230 [place] [address] Elin Rasheed MD 230 [place] [address] Prior Authorization (BCBS (FEP) PA: Trulicity) Social History Tobacco Use Types Packs/Day Years [...] Telephone Encounter - Lakeshia Handy - 03/21/2024 9:59 AM EST 03/09/2024: PA for Trulicity signed and faxed to BS . Confirmation received and sent to scan. If patient calls to check status on above, please advise them to contact [employer]BS . * Telephone Encounter - Lakeshia Handy - 03/06/2024 4:24 PM EST PA for Trulicity from [employer]BS (FEP) placed on PCP desk for signature. documented in this encounter Plan of Treatment Upcoming Encounters Date Type Department Care Team (Late st Contact Info) Description 04/20/2024 2:30 PM EST Office Visit [facility] 230 [place] [address] Elin Rasheed MD 230 [place] [address] documented as of this encounter Visit Diagnoses Not on filedocumented in this encounter Care Teams Land Classifier Relationship Specialty Start Date End Date Elin Rasheed MD 230 [place] [address] PCP - General Family Medicine 03/26/20 documented as of this encounter
--- OUTSIDE RECORDS SUMMARY | 2024-04-01 23:26 | XMS_ITS | Clinical Summary ---
Author Organization [employer] Address [address] [facility] 7t [place] [address] Care Team Providers Care Logistics Supervisor Name Role Phone Elin Rasheed MD Primary Care Provider [phone] Allergies Active Allergy Reactions Criticality Noted Date Comments Sulfamethoxazole Unknown Sulfamethoxazole-Trimethoprim Rash Low 2022 Trimethoprim Unknown Medications cholecalciferol (Vitamin D-3) 50 MCG (1999) capsule Take 1 capsule by mouth at bed time. 02/16/19 22 Active Diclofenac Sodium 1 % gel Apply 2 g topically if needed in the morning and at bedtime (pain). 150 g 3 08/21/19 23 Active amLODIPine (Norvasc) 10 MG tabletIndication s:Essential hypertension Take 1 tablet by mouth daily 90 tablet 3 01/13/20 23 Active acetaminophen (Tylenol 8 Hour) 650 MG ER tabletIndication s:Sciatica of left side TAKE 1 TABLET (650 MG) BY MOUTH EVERY 8 HOURS IF NEEDED FOR MILD PAIN. DO NOT CRUSH, CHEW, OR SPLIT. 90 tablet 1 02/05/20 23 Active silver sulfADIAZINE (Silvadene) 1 % cream APPLY DAILY DIRECTED 08/01/19 24 Active metoclopramide (Reglan) 5 MG tablet Take 1 tablet (5 mg) by mouth if needed in the morning and at bedtime (migraine). 30 tablet 1 09/20/19 24 Active dulaglutide (Trulicity) 1.5 MG/0.5ML solution pen-injectorIndi cations:Type 2 diabetes mellitus without complication, unspecified whether snf insulin use ([facility]) INJECT 1.5 MG UNDER THE SKIN 1 (ONE) TIME PER WEEK. 2 mL 6 10/20/19 24 Active metFORMIN (Glucophage) 500 MG tablet TAKE 2 TABLETS BY MOUTH TWICE A DAY WITH BREAKFAST AND EVENING MEALS. 360 tablet 3 10/31/19 24 Active gabapentin (Neurontin) 400 MG capsuleIndicatio ns:Sciatica of left side Take 1-2 capsules (400-800 mg) by mouth at bedtime. 60 capsule 6 11/01/19 24 Active fluticasone (Flonase) 50 MCG/ACT nasal spray Administer 1-2 sprays into each nostril Once per day. Shake gently. Before first use, prime pump. After use, clean tip and replace cap. 16 g 3 11/22/19 24 025 Active cetirizine (ZyrTEC) 10 MG tablet Take 1 tablet (10 mg) by mouth Once per day. 90 tablet 3 11/22/19 24 025 Active Dulaglutide (Trulicity) 3 MG/0.5ML solution auto-injector Inject 3 mg as directed 1 (one) time per week. INJECT 3 MG SUBCUTANEOUSLY WEEKLY 2 mL 5 11/29/19 24 Active lisinopril 40 MG tablet TAKE 1 TABLET BY MOUTH DAILY 90 tablet 3 01/11/20 24 Active ketorolac (Toradol) 10 MG tablet TAKE 1 TABLET BY MOUTH 3 TIMES DAILY 20 tablet 1 02/15/19 25 Active Active Problems Problem Noted Date Diagnosed Date Migraine with aura and witho ut status migrainosus, not intractable 09/20/2023 Assessment & Plan (09/20/2023 1:31 PM EDT): New onset Will obtain head CT urgently Refilled migraine cocktail meds, warned about overuse Depending on CT results, will offer preventative (likely Propranolol) and abortive medications ER precautions and red flag signs for SCOTT discussed Carpal tunnel syndrome on right 12/29/2022 Assessment & Plan (05/02/2023 8:39 AM EDT): Referral to hand surgery for steroid injections Assessment & Plan (12/29/2022 9:02 AM EST): Night wrist splint youtube stretching videos Sciatica of left side 09/15/2022 Assessment & Plan (05/02/2023 8:41 AM EDT): Gave phone number to call PT Continue home remedies Discussed all risks and benefits of very sparing, intermittent oxycodone use, 15 tabs prescribed Assessment & Plan (12/29/2022 8:55 AM EST): Gave phone number to call PT Continue home remedies Discussed all risks and benefits of very sparing, intermittent oxycodone use, 15 tabs prescribed Bulging of lumbar intervertebral disc 09/15/2022 Assessment & Plan (09/15/2022 3:55 PM EDT): Between L5 and S1 causing impingement on exiting L5 nerve root on the L Refer to PT Refer to NSG Add Gabapentin 400-800mg at night Continue oxycodone 5mg up to TID as needed Continue Naproxen 500mg BID Letter given for work that he is not to travel during this acute injury and rehab time Vitamin D deficiency 08/20/2022 Class 2 obesity 08/20/2022 Allergic rhinitis 06/16/2015 Essential hypertension 06/16/2015 Assessment & Plan (09/20/2023 1:32 PM EDT): Maintenance: Lisinopril 40mg, hydrochlorothiazide 25mg BMP: today Lipid Panel: today ASCVD Risk: Calculate pending updated labs EKG: Obtain baseline at f/u - Aerobic exercise to reduce BP. Initial goal of 30 min walk 3-5x/week. Increase as tolerated. - low-sodium diet (goal: <2g/day) and heart healthy diet such as DASH to reduce BP and prevent ASCVD. - Home BP monitoring 1-2 x day with goal of <140/90. - Seek immediate medical attention for chest pain, palpitations, SOB, syncope, or sudden changes in mental status. - Do not change or discontinue current prescriptions without first consulting health care provider Assessment & Plan (05/02/2023 8:40 AM EDT): Not at goal here Maintenance: Lisinopril/HCTZ BMP: today Lipid Panel: today ASCVD Risk: Calculate pending updated labs EKG: Obtain baseline at f/u - Aerobic exercise to reduce BP. Initial goal of 30 min walk 3-5x/week. Increase as tolerated. - low-sodium diet (goal: <2g/day) and heart healthy diet such as DASH to reduce BP and prevent ASCVD. - Home BP monitoring 1-2 x day with goal of <140/90. - Seek immediate medical attention for chest pain, palpitations, SOB, syncope, or sudden changes in mental status. - Do not change or discontinue current prescriptions without first consulting health care provider Assessment & Plan (12/29/2022 9:02 AM EST): Encouraged methods for med compliance, as when he takes his Lisinopril/HCTZ his BP is at goal Assessment & Plan (09/15/2022 3:55 PM EDT): At goal <140/90 Continue Lisinopril/HCTZ Sleep apnea 06/16/2015 Assessment & Plan (05/02/2023 8:39 AM EDT): Repeat home sleep study ordered 01/2023 to assess for ongoing need of CPAP Assessment & Plan (09/15/2022 3:56 PM EDT): Repeat home sleep study to assess for ongoing need of CPAP or not Type 2 diabetes mellitus 06/16/2015 Assessment & Plan (09/20/2023 1:32 PM EDT): Due for labs, will go this week continue Metformin 1000mg BID Continue Trulicity 1.5mg weekly Not on ASA or statin, address after labs Foot exam normal 05/2023, saw podiatry for other foot related concerns (callus) Assessment & Plan (05/02/2023 8:40 AM EDT): continue Metformin to 1000mg BID Increase Trulicity to 1.5mg weekly Not on ASA or statin, address after labs today Foot exam normal today for sensation Assessment & Plan (12/29/2022 9:40 AM EST): continue Metformin to 1000mg BID A1C 8.9 Add Trulicity 0.75mg weekly because still not at goal of <7.0 Assessment & Plan (09/15/2022 3:56 PM EDT): Increase Metformin to 1000mg BID A1C 9.8 Encounters Date Type Department Care Team Description 03/21/2024 Telephone [facility] [address] [place] [phone] Elin Rasheed MD Prior Authorization (PA: Mallory) 03/15/2024 Refill [facility] [address] [place] [address] Elin Rasheed MD 03/06/2024 Telephone [facility] [address] [place] [address] Elin Rasheed MD Prior Authorization (BCBS (FEP) PA: Mallory) 02/21/2024 Refill [facility] [address] [place] [address] Elin Rasheed MD 02/17/2024 Telephone [facility] [address] [place] [address] Elin Rasheed MD No Show 02/15/2024 Refill [facility] [address] [place] [address] Elin Rasheed MD 01/11/2024 Refill [facility] [address] [place] [address] Elin Rasheed MD from Last 3 Months Immunizations Name Administration Dates Next Due DTP 01/15/1987,1986,1986 DTaP 07/16/1990,09/16/1987 Hep B, Adolescent or Pediatric 05/21/1998,1997,07/26/1997 Hib (HbOC) 04/15/1988 IPV 08/09/1990, 8,01/15/1987,07/16,1986 Influenza injectable quadriv alent IIV4 with preservative 11/03/2017 Influenza injectable quadriv alent preservative free 12/27/2022,12/16/2019,02/02/2016 MMR 07/26/1997,07/17/1987 Pneumococcal Polysaccharide PPSV23 03/05/2016 TD (adult), 2 Lf tetanus tox oid, preservative free, adsorbed 10/15/1998 Tdap 09/18/2014 Social History Tobacco Use Types Packs/Day Years Used Date Smoking Tobacco: Never Smokeless Tobacco: Never Tobacco Cessation:Counseling Given: Not Answered Alcohol Use Standard Drinks/Week Comments Never 0 [...] Orientation Straight 04/22/2023 8: 36 AM EST Last Filed Vital Signs Vital Sign Reading Time Taken Comments Blood Pressure 146/93 04/29/2023 10:59 AM EDT Pulse 81 04/29/2023 10:59 AM EDT Temperature 36.1 ??C (97 ??F) 04/29/2023 10:59 AM EDT Respiratory Rate 20 04/29/2023 10:59 AM EDT Oxygen Saturation 97% 04/29/2023 10:59 AM EDT Inhaled Oxygen Concentration - - Weight 128 kg (282 lb 3.2 oz) 04/29/2023 10:59 A M EDT Height 180.3 cm (5' 11 ) 04/29/2023 10:59 AM EDT Body Mass Index 39.36 04/29/2023 10:59 AM EDT Plan of Treatment Upcoming Encounters Date Type Department Care Team (Late st Contact Info) Description 04/20/2024 2:30 PM EST Office Visit [facility] [address] [place] [address] Elin Rasheed MD 230 [place] [address] Health Maintenance Due Date Last Done Comments HIV Screening 1986 Lipid Panel 1986 Eye Exam 1996 Alcohol/Substance Use Screening 1998 Family Planning (PISQ) 2001 Hepatitis C Screening 2004 Pneumococcal Vaccine: Pediatrics (0 to 5 Years) and At-Risk Patients (6 to 49) Years) (2 of 2 - PCV) 03/05/2017 03/05/2016 Diabetes: Urine Protein Screening 06/21/2020 06/22/2019 Diabetes: Hemoglobin A1C 07/30/2023 024, 12/27/2022, 09/15/2022, Additional history exists Depression Screening 09/16/2023 09/15/2022, 09/16/19 23 COVID-19 Vaccine ( - season) 2023 05/23/2020 Influenza Vaccine (#1) 2023 3, 12/16/2019, 11/03/2017, Additional history exists SDOH Screening 04/20/2024 04/21/2023 Diabetes: Foot Exam 07/13/2024 07/14/2023 DTaP/Tdap/Td Vaccines (6 - Td or Tdap) 09/18/2024 09/18/2014, 10/15/1998, 07/16/1990, Additional history exists Tobacco Screening 09/19/2024 09/20/2023 Zoster Vaccines (1 of 2) 2036 RSV Patients and Patients Aged 60 years or older (1 - 1-dose 75+ series) 2061 HIB Vaccines Completed 04/15/1988 IPV Vaccines Completed 08/09/1990, 08/0 03/1987, 01/15/1987, Additional history exists Hepatitis B Vaccines Completed 05/21/1998, 12/19/1997, 07/26/1997 HPV Vaccines Aged Out No longer eligi ble based on patient's age to complete this topic Hepatitis A Vaccines Aged Out No long er eligible based on patient's age to complete this topic Meningococcal Vaccine Aged Out No precious ranjit eligible based on patient's age to complete this topic RSV under 20 months Aged Out No longe r eligible based on patient's age to complete this topic Rotavirus Vaccines Aged Out No longer eligible based on patient's age to complete this topic Procedures Procedure Name Priority Date/Time Associated Diagnosis Comments AMB REFERRAL TO PODIATRY Routine 07/14/2023 Corns and callosities Type 2 diabetes mellitus with hyperglycemia, without long-term current use of insulin ([facility]) POCT GLYCOSYLATED HEMOGLOBIN (HGB A1C) Routine 04/29/2023 11:03 AM EDT Type 2 diabetes mellitus without complication, without long-term current use of insulin ([facility]) PatZZ HISTORICAL MICROALBUMIN, RANDOM Routine 06/22/2019 10:14 AM EDT from Last 3 Months or Most Recently Relevant to Health Maintenance Results * Referral to Podiatry (07/14/2023) Elin Rasheed MD OUTPATIENT REFERRAL ORDERABLES Final Result * (ABNORMAL) POCT glycosylated hemoglobin (Hgb A1c) (04/29/2023 11:03 AM EDT) Hemoglobin A1C 7.6(A) 4.0 - 6.0 % QC Media Lot # [id number] Lot# Expiration Date 120,325 Blood Capillary blood specimen / Unknown 04/29/2023 11:03 AM EDT Elin Rasheed MD POINT OF CARE TEST ENTER/EDIT ORDERABLES Final Result * MICROALBUMIN, RANDOM (06/22/2019 10:14 AM EDT) CREATININE, RANDOM URINE 255.18 MG/DL [facility] MICALB/CRE RATIO RANDOM URINE 9.0 ug/mg cr [facility] Comment: ?Albumin/Creatinine Ratio Reference Ranges: ? Normal: < 30 ug/mg creatinine ? Microalbuminuria: ??30 - 300 ug/mg creatinine Clinical Albuminuria: ??> 300 ug/mg creatinine MICROALBUMIN, RANDOM URINE 23.0 MG/L [facility] 06/22/2019 10:1 4 AM EDT us Maria E Varghese NP HISTORICAL/NON ORDERABLE LABS Fi nal Result Performing Organization Address City/State/[facility] Co de Phone Number [facility] [address] from Last 3 Months or Most Recently Relevant to Health Maintenance Insurance (Work) [address] [place] [address] [place] [address] Care Teams Logistics Supervisor Relationship Specialty Start Date End Date Elin Rasheed MD [address] [place] [address] PCP - General Family Medicine 03/26/20
--- OUTSIDE RECORDS SUMMARY | 2024-04-01 23:26 | XMS_ITS | Encounter Summary ---
Author Organization [employer] Address [address] [facility] 7t [place] [address] Care Team Providers Care Adobe Layer Name Role Phone Elin Rasheed MD Primary Care Provider [phone] Reason for Referral * Consultation (Routine) - Closed Specialty Diagnoses / Procedures Referred By Contac t Referred To Contact Physical Therapy Diagnoses Bulging of lumbar intervertebral disc Sciatica of left side Elin Rasheed MD [address] [place] [address] Phone: tel: fax: Physical Therapy, AT [address] [place] [address] Dr Pearson [place], [place] Phone: tel: fax: Referral ID Status Reason Start Date Expiration Date V isits Requested Visits Authorized [id number] Closed Specialty Services Required 07/08/2023 07/07/2024 1 1 Encounter Details Date Type Department Care Team (Late st Contact Info) Description 07/08/2023 Orders Only [facility] [address] [place] [address] Elin Rasheed MD [address] [place], [place] [phone] Bulging of lumbar intervertebral disc (Primary Dx); Sciatica of left side Social History Tobacco [...] Description 04/20/2024 2:30 PM EST Office Visit [facility] [address] [place] [phone] Elin Rasheed MD [address] [place] [address] Scheduled Referrals Name Type Priority Associated Diagnoses Orde r Schedule Referral to Physical Therapy Outpatient Referral Routine Bulging of lumbar intervertebral disc Sciatica of left side Expected: 07/08/2023 (Approximate), Expires: 07/07/2024 documented as of this encounter Visit Diagnoses Diagnosis Bulging of lumbar intervertebral disc- Primary Sciatica of left side documented in this encounter Care Teams Adobe Layer Relationship Specialty Start Date End Date Elin Rasheed MD [address] [place] [phone] PCP - General Family Medicine 03/26/20 documented as of this encounter
--- OUTSIDE RECORDS SUMMARY | 2024-04-01 23:26 | XMS_ITS | Encounter Summary ---
Author Organization [employer] Address [address] [facility] [address]t [place] [address] Care Team Providers Care Cane Weigher Name Role Phone Elin Rasheed MD Primary Care Provider [phone] Reason for Visit * Reason Comments Med Refill Encounter Details Date Type Department Care Team ([facility] st Contact Info) Description 12/04/2022 Refill [facility] [address] [place], [place] [phone] Elin Rasheed MD 230 [place], [place] [phone] Social History Tobacco Use Types Packs/Day Years [...] Description 04/20/2024 2:30 PM EST Office Visit [facility] [address] [place] [address] [phone] Elin Rasheed MD [address] [place] [phone] documented as of this encounter Visit Diagnoses Not on filedocumented in this encounter Care Teams Cane Weigher Relationship Specialty Start Date End Date Elin Rasheed MD [address] [place] [phone] PCP - General Family Medicine 03/26/20 documented as of this encounter
--- OUTSIDE RECORDS SUMMARY | 2024-04-01 23:26 | XMS_ITS | Encounter Summary ---
Author Organization [employer] Address [address] [facility] 7t [place] [address] Care Team Providers Care Guard Captain Name Role Phone Elin Rasheed MD Primary Care Provider [phone] Reason for Visit * Reason Comments Med Refill Encounter Details Date Type Department Care Team (Late Contact Info) Description 10/11/2022 Refill [facility] [address] [place] [address] [phone] Tiffany Arrington DO [address] [place], [place] [phone] Social History Tobacco Use Types Packs/Day Years [...] Encounters Date Type Department Care Team (Late Contact Info) Description 04/20/2024 2:30 PM EST Office Visit [facility] [address] [place] [address] [phone] Elin Rasheed MD [address] [place], [place] [phone] documented as of this encounter Visit Diagnoses Not on filedocumented in this encounter Care Teams Guard Captain Relationship Specialty Start Date End Date Elin Rasheed MD [address] [place] [address] PCP - General Family Medicine 03/26/20 documented as of this encounter
--- OUTSIDE RECORDS SUMMARY | 2024-04-01 23:26 | XMS_ITS | Encounter Summary ---
Author Organization [employer] Address [address] [place] [address] Care Team Providers Care Repair Tech Name Role Phone Elin Rasheed MD Primary Care Provider [phone] Encounter Details Date Type Department Care Team (Late st Contact Info) Description 11/22/2023 Orders Only [facility] [address] [place], [place] [phone] Elin Rasheed MD [address] [place], [place] [phone] Social History Tobacco Use Types Packs/Day Years [...] Description 04/20/2024 2:30 PM EST Office Visit [facility] [address] [place] [address] Elin Rasheed MD [address] [place] [address] documented as of this encounter Visit Diagnoses Not on filedocumented in this encounter Care Teams Repair Tech Relationship Specialty Start Date End Date Elin Rasheed MD [address] [place], [place] [phone] PCP - General Family Medicine 03/26/20 documented as of this encounter
--- OUTSIDE RECORDS SUMMARY | 2024-04-01 23:26 | XMS_ITS | Encounter Summary ---
Author Organization [employer] Address [address] [place] [address] Care Team Providers Care Log Getter Name Role Phone Elin Rasheed MD Primary Care Provider [phone] Reason for Visit * Reason Onset Date Comments Med Refill 03/15/2024 Encounter Details Date Type Department Care Team (Late st Contact Info) Description 03/15/[address] [facility] [address] [place] [address] Elin Rasheed MD [address] [place] [address] Social History Tobacco Use Types Packs/Day Years [...] Description 04/20/2024 2:30 PM EST Office Visit [facility] [address] [place] [phone] Elin Rasheed MD [address] [place] [phone] documented as of this encounter Visit Diagnoses Not on filedocumented in this encounter Care Teams Log Getter Relationship Specialty Start Date End Date Elin Rasheed MD [address] [place] [phone] PCP - General Family Medicine 03/26/20 documented as of this encounter
== END 2024-04-02 01:51 | disposition left against medical advice (07) ==
PROVIDERS: Emergency Provider Emergency Medicine
DX: G43.909 Migraine, unspecified, not intractable, without status migrainosus (principal); Z79.899 Other long term (current) drug therapy; Z11.52 Encounter for screening for COVID-19
CPT/HCPCS: 80048; 85007; 85027; 87502; 87635; 99281

== ENCOUNTER 2024-07-30 20:32 | Emergency (ER) | payer BC, SELFPAY ==
--- NOTE | ~2024-07-30 | CT_ITS ---
CLINICAL HISTORY: diverticulitis CT abdomen and pelvis with contrast Comparison: None Findings: No consolidation or effusion. Lobulated liver surface. Cholecystectomy. Abdominal solid organs otherwise unremarkable. No urolithiasis. No bowel obstruction, pneumoperitoneum, or pneumatosis. Mesenteric vessels patent. Large amount of stool in the right colon. Normal appendix. The bones are intact. IMPRESSION: 1. No acute findings. No evidence of diverticulitis. 2. Nodular liver suggesting cirrhosis. This document has been electronically signed by: Lyndsay Avery MD on 07/31/2024 03:14:20
[2024-07-30 20:56] VITALS: BP 150/98; PULSE 79; RESP 18; TEMP 36.6; O2SAT 97; BMI 39.4
[2024-07-30 23:09] VITALS: BP 135/84; PULSE 57; RESP 16; TEMP 36.8; O2SAT 99
[2024-07-30 23:18] LABS: OBS Int Ctl Valid YES; OBS1 NEGATIVE (NEGATIVE)
[2024-07-30 23:39] LABS: Basophils Absolute Auto 0.2 X10*3/uL (0.0-0.2); Basophils Percent Auto 1.4 % (0-2); Eosinophils Absolute Auto 1.7 X10*3/uL (0.0-0.4); Eosinophils Percent Auto 14.6 % (0-4); Hematocrit 40.1 % (42.0-52.0); Hemoglobin 14.9 g/dl (14.0-18.0); Imm Gran Abs Auto 0.07 X10*3/uL (0.00-0.03); Imm Gran Pct Auto 0.6 % (0.0-0.4); Lymphocytes Absolute Auto 2.5 X10*3/uL (1.2-4.9); Lymphocytes Percent Auto 22.1 % (20-40); Mean Corpuscular HGB Conc 37.2 g/dl (31.0-36.0); Mean Corpuscular Hemoglobin 30.8 pg (27.0-33.0); Mean Platelet Volume 11.7 fL (9.4-12.4); Monocytes Absolute Auto 0.7 X10*3/uL (0.1-1.2); Monocytes Percent Auto 6.4 % (2-11); Neutrophils Absolute Auto 6.3 x10*3/uL (2.0-8.3); Neutrophils Percent Auto 54.9 % (45-73); Platelet Count 161 X10*3/uL (160-400); Red Blood Count 4.83 X10*6/uL (4.60-5.80); Red Cell Distribution Width 11.9 % (11.0-16.0); White Blood Count 11.5 X10*3/uL (4.8-10.8)
[2024-07-30 23:40] LABS: Alanine Aminotransferase 28 U/L (0-40); Albumin Level 4.1 g/dL (3.5-5.0); Alkaline Phosphatase 77 U/L (39-117); Anion Gap 14 (12-20); Aspartate Amino Transferase 26 U/L (5-37); Bilirubin Total 0.9 mg/dL (0.0-1.0); Blood Urea Nitrogen 10 mg/dL (9-16); Calcium 9.2 mg/dL (8.4-10.2); Carbon Dioxide 26 mmol/L (22-29); Chloride 105 mmol/L (96-108); Creatinine Clr Calc Pharmacy 195.1; Estimated Glomerular Filt Rate > 60; Glucose Random 118 mg/dL (60-115); Lipase 18 U/L (8-78); Potassium 3.4 mmol/L (3.3-5.1); Sodium 142 mmol/L (135-145)
[2024-07-30 23:55] LABS: MANUAL DIFF FLAG NO
[2024-07-31] MEDS: iohexoL 350 MG/ML 100 ML INFUS..BTL IV (01:55)
--- NOTE | 2024-07-31 03:24 | MHC.EDTECH ---
pt unable to provide stool sample at this time.
--- NOTE | 2024-07-31 03:42 | ED.GENADULT ---
HPI - General Adult General Chief complaint: Abdominal Pain Stated complaint: ? rectal bleeding Time Seen by Provider: 07/30/24 22:02 Source: patient Limitations: no limitations History of Present Illness ED Provider: Celsa Evangelista PA-C HPI narrative: 39-year-old male with a history of hypertension, diabetes, kidney stones who presents with the abdominal pain x2 weeks. Patient states he was working at a [employer] in [place] 2 weeks ago, during that time he developed abdominal pain, nausea vomiting diarrhea. Patient has been having ongoing dark loose stools. Denies fever. Denies sick contacts with similar symptoms. Denies use of antibiotics or hospitalization. No travel out of the country. Related Data Previous Rx's ?Medication ?Instructions ?Recorded ondansetron 4 mg disintegrating 4 mg PO Q8H PRN nausea and 10/09/21 tablet vomiting #20 tabs cyclobenzaprine 10 mg tablet 10 mg PO TID PRN muscle spasm #10 08/17/22 tabs tramadol 50 mg tablet 50 mg PO BID PRN pain #7 tabs 08/17/22 oxycodone 5 mg tablet 5 mg PO Q6H PRN pain #10 tabs 09/10/22 ketorolac 10 mg tablet 10 mg PO Q8H PRN pain #12 tabs 09/01/23 lisinopril 40 mg tablet (Zestril) 40 mg PO DAILY #90 tabs 09/01/23 metoclopramide HCl 5 mg tablet 5 mg PO DAILY PRN nausea and 09/01/23 (Reglan) vomiting #12 tabs levofloxacin 500 mg tablet 500 mg PO DAILY #5 tabs 07/31/24 metronidazole 500 mg tablet 500 mg PO Q8H #15 tabs 07/31/24 Allergies Allergy/AdvReac Type Severity Reaction Status Date / Time Sulfa (Sulfonamide Allergy Unknown Unknown Verified 07/30/24 21:01 Antibiotics) sulfamethoxazole Allergy Unknown UNKNOWN Verified 07/30/24 21:01 [From BACTRIM] trimethoprim [From BACTRIM] Allergy Unknown UNKNOWN Verified 07/30/24 21:01 Review of Systems Review of Systems: Yes all other systems are reviewed and are negative Constitutional: Constitutional: Denies fatigue and Denies fever(s) Cardiovascular: Cardiovascular: Denies chest pain Gastrointestinal: Gastrointestinal: Reports abdominal pain, Reports melena, Reports diarrhea, Reports nausea and Reports vomiting Endocrine: Endocrine: Denies fatigue [facility] Past Medical History Attestation statement: The following information was validated with the patient. Medical History (Updated 07/31/24 @ 04:16 by LENIN Sauceda) Migraine Diabetes HTN (hypertension) Social History Social History (Updated 10/09/21 @ 14:51 by Paty Moyer DO) Alcohol intake: never Patient Tobacco Use Status: Never used Tobacco Advance Directives: No Advance Directives Information Provided: No Physical Exam ED Vital Signs: Vital Signs - 24 hr 07/30/24 20:56 07/30/24 23:09 Temperature 97.9 F 98.2 F Pulse Rate 79 57 Respiratory Rate 18 16 Blood Pressure 150/98 H 135/84 Pulse Oximetry 97 99 Oxygen Delivery Method Room Air Room Air BMI result Body Mass Index 39.4 Const Other: Alert well-appearing Orientation/consciousness: patient oriented x3 Resp Effort & Inspection: normal respiratory effort Cardio Other: Normal peripheral perfusion GI Other: Abdomen is soft, nondistended, obese, mild tenderness over lower abdomen, primarily mid lower abdomen without guarding, dual dark brown in color, not melena, no obvious blood, guaiac negative Skin Other: Warm dry no rash Neuro General: patient oriented x3, gait normal, no focal motor deficits and CN's II-XI intact bilaterally Psych Other: Cooperative Course Reevaluation(s) Reevaluation #1: At the time of discharge, the patient is unable to give a stool sample. We will send him with supplies, he can call his primary care provider tomorrow to order the studies. He has tried multiple times. We will start empiric treatment. Did relayed to the patient of the there was concern for cirrhosis on CT scan, he denies alcohol abuse history, he denies history of ROUSE, he has been advised to follow up with primary care for GI consult. Time: 04:15 Medications Administered Discontinued Medications Generic Name Dose Route Start Last Admin Trade Name Freq PRN Reason Stop Dose Admin Iohexol 100 ml 07/31/24 01:54 07/31/24 01:55 Iohexol 350 Mg/Ml 100 Ml Infus..Btl IV 07/31/24 01:55 100 ml ONCE ONE Administration Medical Decision Making Medical Decision Making MDM Narrative: 39-year-old male with a history of hypertension, diabetes, kidney stones who presents with the abdominal pain x2 weeks. 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 Patient has been having ongoing dark loose stools. Denies fever. Denies sick contacts with similar symptoms. Denies use of antibiotics or hospitalization. No travel out of the country. Problem: Diabetes, recent travel History: Per patient I have considered the following differential diagnoses: C diff, traveler's diarrhea, parasitic infection, diverticulitis, colitis, viral gastroenteritis Plan: I am most concerned for traveler's diarrhea versus parasitic infection, we will order GI panel and ova parasite. Given pain, considering diverticulitis, we will obtain a CT scan. I was initially thinking GI bleed, however guaiac negative. Protonix was given with IV fluid. The patient is not current we having any pain. I have independently reviewed the following tests: Labs: Slight leukocytosis, no left shift noted, eosinophil count markedly elevated at 14.6, liver function tests normal, no electrolyte abnormalities noted CT abdomen and pelvis, Findings: No consolidation or effusion. Lobulated liver surface. Cholecystectomy. Abdominal solid organs otherwise unremarkable. No urolithiasis. No bowel obstruction, pneumoperitoneum, or pneumatosis. Mesenteric vessels patent. Large amount of stool in the right colon. Normal appendix. The bones are intact. IMPRESSION: 1. No acute findings. No evidence of diverticulitis. 2. Nodular liver suggesting cirrhosis. Lab Data 07/30/24 23:33 07/30/24 23:33 Labs: Lab Results 07/30/24 07/30/24 Range/Units 23:07 23:33 WBC 11.5 H (4.8-10.8) X10*3/uL RBC 4.83 (4.60-5.80) X10*6/uL Hgb 14.9 (14.0-18.0) g/dl Hct 40.1 L (42.0-52.0) % MCV 83.0 (80.0-98.0) fL MCH 30.8 (27.0-33.0) pg MCHC 37.2 H (31.0-36.0) g/dl RDW 11.9 (11.0-16.0) % Plt Count 161 (160-400) X10*3/uL MPV 11.7 (9.4-12.4) fL Immature Gran % (Auto) 0.6 H (0.0-0.4) % Neut % (Auto) 54.9 (45-73) % Lymph % (Auto) 22.1 (20-40) % Benton % (Auto) 6.4 (2-11) % Eos % (Auto) 14.6 H (0-4) % Baso % (Auto) 1.4 (0-2) % Lymph # (Auto) 2.5 (1.2-4.9) X10*3/uL Benton # (Auto) 0.7 (0.1-1.2) X10*3/uL Eos # (Auto) 1.7 H (0.0-0.4) X10*3/uL Baso # (Auto) 0.2 (0.0-0.2) X10*3/uL Abs Immat Gran (auto) 0.07 H (0.00-0.03) X10*3/uL Absolute Neuts (auto) 6.3 (2.0-8.3) x10*3/uL Absolute Nucleated RBC 0.000 (0.0-0.012) X10*3/uL Nucleated RBC % (auto) 0.0 (0.0-0.2) /100WBC Sodium 142 (135-145) mmol/L Potassium 3.4 (3.3-5.1) mmol/L Chloride 105 (96-108) mmol/L Carbon Dioxide 26 (22-29) mmol/L Anion Gap 14 (12-20) BUN 10 (9-16) mg/dL Creatinine 0.68 (0.5-1.4) mg/dL Estim Creat Clear Calc 195.1 Estimated GFR > 60 Random Glucose 118 H (60-115) mg/dL Calcium 9.2 (8.4-10.2) mg/dL Magnesium 2.0 (1.6-2.6) mg/dL Total Bilirubin 0.9 (0.0-1.0) mg/dL AST 26 (5-37) U/L ALT 28 (0-40) U/L Alkaline Phosphatase 77 (39-117) U/L Total Protein 7.0 (6.5-8.0) g/dL Albumin 4.1 (3.5-5.0) g/dL Lipase 18 (8-78) U/L Stool Occult Blood NEGATIVE (NEGATIVE) Discharge Plan Discharge Clinical Impression: Diarrhea Patient Disposition: Home, Self-Care Instructions: Traveler's Diarrhea (ED) Additional Instructions: Overall your screening labs were normal, the CT scan of the abdomen did not reveal an acute infectious process in your bowel, it did show concern for potential development of cirrhosis. You need to follow up with primary care to have gastroenterology consult. In regard to your ongoing GI upset, it would be ideal for you to have a stool culture and ova and parasite obtained, to confirm if you have a parasitic infection versus a bacterial infection. We are starting empiric treatment. Take the Levaquin as directed, take the Flagyl as directed. Call your primary care tomorrow, and ask that they order these lab studies. You are being provided with equipment to obtain a stool sample at home. Prescriptions: New levofloxacin 500 mg tablet 500 mg PO DAILY Qty: 5 0RF metronidazole 500 mg tablet 500 mg PO Q8H Qty: 15 0RF No Action ondansetron 4 mg tablet,disintegrating 4 mg PO Q8H PRN (Reason: nausea and vomiting) Qty: 20 0RF tramadol 50 mg tablet 50 mg PO BID PRN (Reason: pain) Qty: 7 0RF cyclobenzaprine 10 mg tablet 10 mg PO TID PRN (Reason: muscle spasm) Qty: 10 0RF oxycodone 5 mg tablet 5 mg PO Q6H PRN (Reason: pain) Qty: 10 0RF Rx Instructions: Partial Fill upon patient request. ketorolac 10 mg tablet 10 mg PO Q8H PRN (Reason: pain) Qty: 12 0RF Rx Instructions: Do not take this medication with ibuprofen, naproxen, only Tylenol if needed metoclopramide HCl [Reglan] 5 mg tablet 5 mg PO DAILY PRN (Reason: nausea and vomiting) Qty: 12 0RF Rx Instructions: Take together with ketorolac p.r.n. migraine headache lisinopril [Zestril] 40 mg tablet 40 mg PO DAILY Qty: 90 0RF Stand Alone Forms: Work/School Release Print Language: Lao
[2024-07-31] MEDS: metroNIDAZOLE 500 MG TABLET PO (04:24)
[2024-07-31] MEDS: levoFLOXacin 500 MG TABLET PO (04:24)
[2024-07-31 04:26] VITALS: BP 146/99; PULSE 73; RESP 20; TEMP 36.8; O2SAT 98
[2024-07-31 04:32] VITALS: BP 146/99; PULSE 73; RESP 20; TEMP 36.8; O2SAT 98
== END 2024-07-31 04:32 | disposition home or self-care (01) ==
PROVIDERS: Physician Assistant Medical; Emergency Provider Emergency Medicine; PCP General Practice
DX: R19.7 Diarrhea, unspecified (principal); R11.2 Nausea with vomiting, unspecified; E11.9 Type 2 diabetes mellitus without complications; I10 Essential (primary) hypertension; Z79.899 Other long term (current) drug therapy
CPT/HCPCS: 36415; 74177; 80053; 82272; 83690; 83735; 85025; 99284; Q9967

== ENCOUNTER → 2024-07-31 01:48 | Outpatient (BNV) | payer BC, SELFPAY | PROVIDERS: Emergency Provider Emergency Medicine; PCP General Practice; Visit Provider Radiology Diagnostic Radiology | DX: R93.2 Abnormal findings on diagnostic imaging of liver and biliary tract (principal) | CPT/HCPCS: 74177 ==

== ENCOUNTER 2024-08-05 | Outpatient (REF) | payer BC, SELFPAY | END 2024-08-05 00:01 | disposition home or self-care (01) | LOC: HO.HHCL | PROVIDERS: PCP General Practice; Visit Provider General Practice | DX: A09 Infectious gastroenteritis and colitis, unspecified (principal); Z13.6 Encounter for screening for cardiovascular disorders; Z13.1 Encounter for screening for diabetes mellitus | CPT/HCPCS: 36415; 80061; 83036; 86803; 87389 ==

== ENCOUNTER 2024-08-06 08:12 | Outpatient (REF) | payer BC, SELFPAY ==
[2024-08-06 11:27] LABS: Estimated Average Glucose 163 mg/dL; Hemoglobin A1c % 7.3 % (<6.0)
[2024-08-06 11:45] LABS: Cholesterol 160 mg/dL (<200); HDL Cholesterol 27 mg/dL (>40); LDL Cholesterol Calculated 66 mg/dL (<100); Triglycerides 338 mg/dL (<150)
[2024-08-06 11:48] LABS: HIV AB/AG Nonreactive (Nonreactive); HIV Num 1 0.05 S/CO (0.00-0.99); ~HepC Num1 0.33 S/CO (0.00-0.79); ~Hepatitis C Antibody Nonreactive (Nonreactive)
[2024-08-06 14:49] LABS: Adenovirus F 40/41 Not Detected (Not Detect.); Astrovirus Not Detected (Not Detect.); Campylobacter Not Detected (Not Detect.); Cryptosporidium Not Detected (Not Detect.); Cyclospora cayetanensis Not Detected (Not Detect.); E. coli EAEC Not Detected (Not Detect.); E. coli EPEC Not Detected (Not Detect.); E. coli ETEC Not Detected (Not Detect.); E. coli STEC Not Detected (Not Detect.); Entamoeba histolytica Not Detected (Not Detect.); Giardia lamblia Not Detected (Not Detect.); Norovirus GI/GII Not Detected (Not Detect.); Plesiomonas shigelloides Not Detected (Not Detect.); Rotavirus A Not Detected (Not Detect.); Salmonella Not Detected (Not Detect.); Sapovirus Not Detected (Not Detect.); Shigella sp./EIEC Not Detected (Not Detect.); Vibrio Not Detected (Not Detect.); Vibrio Cholerae Not Detected (Not Detect.); Yersinia enterocolitica Not Detected (Not Detect.)
--- OUTSIDE RECORDS SUMMARY | 2024-08-10 09:08 | XMS_ITS | Encounter Summary ---
Author Organization [employer] Address [address] [place] [address] Care Team Providers Care Surgical Consultant Name Role Phone Elin Rasheed MD Primary Care Provider [phone] Reason for Visit * Reason Onset Date Comments Labs Only 08/06/2024 Encounter Details Date Type Department Care Team ([facility] Contact Info) Description 08/06/2024 Telephone [facility] MEDICINE [address] [place], [place] [phone] Elin Rasheed MD [address] [place] [address] Labs Only Social History Tobacco Use Types Packs/Day Years Used Date Smoking Tobacco: Never Smokeless Tobacco: Never Alcohol Use Standard Drinks/Week Comments Never 0 (1 standard drink = 0.6 oz pur e alcohol) Alcohol Answer Date Recorded How often do you have a drink containing alcohol ? 1 08/01/2024 How many drinks containing a lcohol do you have on a typical day when you are drinking? 0 08/01/2024 How often do you have six or more drinks on one occasion? 0 08/01/2024 Depression Answer Date Recorded Patient Health Questionnaire-9 Score 1 08/01/2024 Patient Health Questionnaire-9 Score 1 08/01/2024 Last PHQ-9: Questionnaire Data Not on file 0 08/01/2024 Housing Stability Answer Date Recorded What is [...] things needed for daily living? No 04/21/2023 Intimate Partner Violence Answer Date R ecorded Within the last year, have y ou been afraid of your partner or ex-partner? 2 08/01/2024 Within the last year, have y ou been humiliated or emotionally abused in other ways by your partner or ex-partner? 2 Within the last year, have y ou been kicked, hit, slapped, or otherwise physically hurt by your partner or ex-partner? 2 08/01/2024 Within the last year, have y ou been raped or forced to have any kind of sexual activity by your partner or ex-partner? 2 08/01/2024 Utilities Answer Date Recorded In the past 12 months, has t he electric, gas, oil or water company threatened to shut off services in your home? No 12/04/2022 Depression Answer Date Recorded Patient Health Questionnaire-2 Score 0 08/01/2024 Internet Access Answer Date Recorded Internet Access Q1 Yes 08/01/2024 Internet Access Q2 Not on file 08/01/2024 Sex and Gender Information Value Date Recorded Sex Assigned at Male 12/14/2021 10:14 AM EDT Legal Sex Male 10:14 AM EDT Gender Identity Male 12/14/2021 10:14 AM EDT Sexual Orientation Straight 04/22/2023 8: 36 AM EST Travel History Travel Start Travel End [place] 07/16/2024 07/20/2024 documented as of this encounter Miscellaneous Notes * Telephone Encounter - Natalya Pugh RN - 08/06/2024 12:56 PM EDT Patient seen at [facility] ED on 07/31/24 and diagnosed with travelers diarrhea (ED note in chart). Per discharge instructions: Additional Instructions: Overall your screening labs were normal, the CT scan of the abdomen did not reveal an acute infectious process in your bowel, it did show concern for potential development of cirrhosis. You need to follow up with primary care to have gastroenterology consult. In regard to your ongoing GI upset, it would be ideal for you to have a stool culture and ova and parasite obtained, to confirm if you have a parasitic infection versus a bacterial infection. We are starting empiric treatment. Take the Levaquin as directed, take the Flagyl as directed. Call your primary care tomorrow, and askthat they order these lab studies. You are being provided with equipment to obtain a stool sample at home. Patient was seen by PCP on 08/01/24 for a TV however labs recommended by ED were not ordered and plan does not mention travelers diarrhea. Patient presented to [facility] lab today to complete these orders (recommended by ED) however they could not collect the sample as they do not have the orders. PCP is on vacation x2 weeks. Please review and advise if agreeable to order labs as covering provider. Thank you! * Telephone Encounter - Blanca Dawson - 08/06/2024 10:19 AM EDT PT stated to [facility] lab located downstairs that he needs the following test done, due to being seen atER for Traveler's Diarrhea. Lab Work needed ova and parasite Per Lab: [place] cup and [facility] cup order is needed. (Could not remember name of lab at the moment) documented in this encounter Plan of Treatment Not on file documented as of this encounter Visit Diagnoses Not on filedocumented in this encounter Additional Health Concerns Assessment Noted Time PHQ-9 Depression Total Score: 1 08/02/19 25 12:51 PM EDT documented as of this encounter Care Teams Surgical Consultant Relationship Specialty Start Date End Date Elin Rasheed MD [address] [place] [phone] PCP - General Family Medicine 03/26/20 documented as of this encounter
== END 2024-08-06 08:13 | disposition home or self-care (01) ==
LOC: HO.HHCL 08:12
PROVIDERS: Internal Medicine; Visit Provider General Practice
DX: A09 Infectious gastroenteritis and colitis, unspecified (principal); K74.69 Other cirrhosis of liver; E11.9 Type 2 diabetes mellitus without complications
CPT/HCPCS: 36415; 80061; 83036; 86803; 87177; 87209; 87389; 87507

== ENCOUNTER 2025-01-26 18:17 | Emergency (ER) | payer BC, SELFPAY ==
[2025-01-26 18:21] VITALS: PULSE 106; RESP 18; TEMP 36.7; O2SAT 99; BMI 39.3
--- NOTE | 2025-01-26 18:29 | ED.WOUNDLAC ---
HPI - Wound/Laceration General Chief Complaint: Wound/Laceration Stated Complaint: sliced finger Time Seen by Provider: 01/26/25 18:28 Source: patient Mode of arrival: ambulatory Limitations: no limitations History of Present Illness ED Provider: Jyoti Lloyd PA-C HPI narrative: Tim presents after sustaining a laceration/avulsion to the tip of the right index finger while cutting cabbages approximately 15 minutes prior to arrival (~06:00). He reports the finger ?feels heavy? and painful at the injury site. He notes minimal active bleeding (?no blood flow? observed). No other injuries or symptoms reported. Patient is right handed. Review of Systems: Musculoskeletal/Integumentary: Positive for pain and superficial skin avulsion of the right index fingertip. Related Data Previous Rx's ?Medication ?Instructions ?Recorded ondansetron 4 mg disintegrating 4 mg PO Q8H PRN nausea and 10/09/21 tablet vomiting #20 tabs cyclobenzaprine 10 mg tablet 10 mg PO TID PRN muscle spasm #10 08/17/22 tabs tramadol 50 mg tablet 50 mg PO BID PRN pain #7 tabs 08/17/22 oxycodone 5 mg tablet 5 mg PO Q6H PRN pain #10 tabs 09/10/22 ketorolac 10 mg tablet 10 mg PO Q8H PRN pain #12 tabs 09/01/23 lisinopril 40 mg tablet (Zestril) 40 mg PO DAILY #90 tabs 09/01/23 metoclopramide HCl 5 mg tablet 5 mg PO DAILY PRN nausea and 09/01/23 (Reglan) vomiting #12 tabs levofloxacin 500 mg tablet 500 mg PO DAILY #5 tabs 07/31/24 metronidazole 500 mg tablet 500 mg PO Q8H #15 tabs 07/31/24 Allergies Allergy/AdvReac Type Severity Reaction Status Date / Time Sulfa (Sulfonamide Allergy Unknown Unknown Verified 01/27/25 19:09 Antibiotics) sulfamethoxazole (From Allergy Unknown UNKNOWN Verified 01/27/25 19:09 BACTRIM) trimethoprim (From BACTRIM) Allergy Unknown UNKNOWN Verified 01/27/25 19:09 Review of Systems Review of Systems: Yes all other systems are reviewed and are negative PMFSH Past Medical History Attestation statement: The following information was validated with the patient. Source: nursing notes reviewed Medical History Migraine Diabetes HTN (hypertension) Social History Social History Alcohol intake: never Patient Tobacco Use Status: Never used Tobacco Advance Directives: No Advance Directives Information Provided: Yes Do you have a plan to hurt others: No Plan Physical Exam Exam: Exam: Well appear obese male, no distress. Vitals as above. Right index finger: Superficial soft tissue avulsion at the distal tip, <1 cm, involving epidermis only. No dermal involvement, no tendon involvement or arterial bleed. No skin flap available for suturing. Does not damage nail. able to visualize under bloodless field. no f/b, no bony tenderness, cap refill < 3 secs, distal pulses 2+, no other injuries noted, NVI, full ROm Vital Signs: Vital Signs: Last Vital Signs Temp 98.0 F 01/26/25 19:31 Pulse 106 H 01/26/25 19:31 Resp 18 01/26/25 19:31 BP 147/82 H 01/26/25 19:31 Pulse Ox 99 01/26/25 19:31 O2 Del Method Room Air 01/26/25 19:31 BMI result Body Mass Index 39.3 Medications Administered Discontinued Medications Generic Name Dose Route Start Last Admin Trade Name Freq PRN Reason Stop Dose Admin Diphtheria/Tetanus/Acell Pertussis 0.5 ml 01/26/25 18:29 01/26/25 18:32 Diphth,Pertus(Acell),Tet Adult 0.5 Ml Syringe IM 01/26/25 18:30 0.5 ml .ONCE ONE Administration Medical Decision Making Medical Decision Making MDM Narrative: The patient presented with a superficial avulsion injury to the right index fingertip, confirmed on examination to involve only the epidermis without deeper tissue, tendon, or arterial involvement. Given the limited depth and absence of a skin flap, topical skin adhesive was selected for closure, and routine wound care instructions were provided. Due to the patient's uncertain tetanus immunization history, a booster was administered in accordance with CDC guidelines for clean, minor wounds and unclear vaccination status. The management plan prioritized rapid wound closure, infection prevention, and patient education regarding signs of complications and tetanus prophylaxis. Superficial epidermal avulsion of right index fingertip without tendon or arterial involvement. Problem #1: Superficial skin avulsion ? right index finger Assessment: Common minor fingertip injury with limited depth (epidermis only); clinically stable. Plan: Apply digital tourniquet at the base of the finger to achieve hemostasis. Dab wound dry and close with topical skin adhesive (Dermabond). Provide routine wound care instructions and return precautions. Discussed expected mild pain; reassure patient. Follow-up PRN for increased pain, swelling, redness, or persistent bleeding. Differential Diagnosis Differential Diagnoses: The differential diagnosis associated with the presentation includes See MDM Admission/Observation Consideration of admission/observation: Escalation of care including admission/observation considered Tests considered The following testing was considered but not selected: if injury was not superficial and was suspicious for blunt/ crush trauma, would have xray'd. Prescription Management I considered prescription management with: Pain Medication and Antibiotic Chronic Conditions Patient?s care impacted by: Other Social Determinants Patient?s care significantly limited by Social Determinants of Health including: Other Social Determinant of Health Procedures Laceration Laceration 1: Site: upper extremity (index finger pad) Side (If applicable): right Size (cm): 1.0 Description: irregular (skin avulsion, epidermal layer) Depth: simple, single layer Pre-repair: wound explored, irrigated extensively and deep structures intact Technique: skin adhesive Discharge Plan Discharge Clinical Impression: Avulsion of skin, Laceration of right index finger Patient Disposition: Home, Self-Care Additional Instructions: We have repaired your laceration with Dermabond.?? The glue will hold the edges of the skin together while it heals.?? The glue will wear off in about 5-7 days.?? Do not put lotion or antibiotic ointment on the glue as it will break it down prematurely.?? You can wash the area normally after 6 hours; however, do not have any prolonged soaks in water.?? As with any laceration, there may be scarring.? The full extent of the scar may not be determined for 6 months to a year.? Minimizing sun exposure will help to reduce scarring. Return immediately or call your doctor for signs of infection that include the following:? Red streaks from wound or surrounding the wound, pus draining from the wound, increased pain, or fever > 100.4 degrees F. Tdap was updated, you were given the CDC vaccine information sheet. This is good for 10 years. Prescriptions: No Action ondansetron 4 mg tablet,disintegrating 4 mg PO Q8H PRN (Reason: nausea and vomiting) Qty: 20 0RF tramadol 50 mg tablet 50 mg PO BID PRN (Reason: pain) Qty: 7 0RF cyclobenzaprine 10 mg tablet 10 mg PO TID PRN (Reason: muscle spasm) Qty: 10 0RF oxycodone 5 mg tablet 5 mg PO Q6H PRN (Reason: pain) Qty: 10 0RF Rx Instructions: Partial Fill upon patient request. ketorolac 10 mg tablet 10 mg PO Q8H PRN (Reason: pain) Qty: 12 0RF Rx Instructions: Do not take this medication with ibuprofen, naproxen, only Tylenol if needed metoclopramide HCl [Reglan] 5 mg tablet 5 mg PO DAILY PRN (Reason: nausea and vomiting) Qty: 12 0RF Rx Instructions: Take together with ketorolac p.r.n. migraine headache lisinopril [Zestril] 40 mg tablet 40 mg PO DAILY Qty: 90 0RF levofloxacin 500 mg tablet 500 mg PO DAILY Qty: 5 0RF metronidazole 500 mg tablet 500 mg PO Q8H Qty: 15 0RF Interventions: ED Discharge Assessment Last Done: 01/26/25 19:31 Discharge Date/Time: 01/26/25 19:32 Print Language: Armenian
[2025-01-26] MEDS: Diphth,Pertus(ACell),Tet Adult 0.5 ML SYRINGE IM (18:32)
--- OUTSIDE RECORDS SUMMARY | 2025-01-26 18:48 | XMS_ITS | Clinical Summary ---
Author Organization [employer] Address [address] [facility] [address] [place] [address] Care Team Providers Care Brick Grader Name Role Phone Elin Rasheed MD Primary Care Provider [phone] Allergies No known active allergies Medications * This document contains information received from the source organization and may not represent a complete record from that organization. cholecalciferol (Vitamin D-3) 50 MCG (1999 UT) capsule Take 1 capsule by mouth at bed time. 2 Active acetaminophen (Tylenol 8 Hour) 650 MG ER tabletIndicatio ns:Sciatica of left side TAKE 1 TABLET (650 MG) BY MOUTH EVERY 8 HOURS IF NEEDED FOR MILD PAIN. DO NOT CRUSH, CHEW, OR SPLIT. 90 tablet 1 3 Active gabapentin (Neurontin) 400 MG capsuleIndicati ons:Sciatica of left side Take 1-2 capsules (400-800 mg) by mouth at bedtime. 60 capsule 6 4 Active fluticasone (Flonase) 50 MCG/ACT nasal spray Administer 1-2 sprays into each nostril Once per day. Shake gently. Before first use, prime pump. After use, clean tip and replace cap. 16 g 3 4 Active cetirizine (ZyrTEC) 10 MG tablet Take 1 tablet (10 mg) by mouth Once per day. 90 tablet 3 4 Active lisinopril 40 MG tablet Take 1 tablet (40 mg) by mouth Once per day. 90 tablet 3 5 Active amLODIPine (Norvasc) 10 MG tablet Take 1 tablet (10 mg) by mouth Once per day. 90 tablet 3 5 05/08/19 26 Active metFORMIN (Glucophage) 500 MG tablet TAKE 2 TABLETS BY MOUTH TWICE A DAY WITH BREAKFAST AND EVENING MEALS 360 tablet 3 5 Active Tirzepatide (Mounjaro) 7.5 MG/0.5ML solution auto-injector Inject 7.5 mg under the skin 1 (one) time per week. 2 mL 3 5 Active Blood Glucose Monitoring Suppl (FreeStyle Lite) device Inject 1 each under the skin Once per day. Test daily before all meals/snacks and once before bedtime. 1 each 5 Active atorvastatin (Lipitor) 10 MG tablet Take 1 tablet (10 mg) by mouth Once per day. 90 tablet 3 5 12/25/19 26 Active Active Problems Problem Noted Date Diagnosed [...] time Vitamin D deficiency 08/20/2022 Class 2 severe obesity due t o excess calories with serious comorbidity and body mass index (BMI) of 39.0 to 39.9 in adult 08/20/2022 Allergic rhinitis 06/16/2015 Essential hypertension 06/16/2015 Assessment & Plan (05/14/2024 6:26 AM EDT): Maintenance: Lisinopril 40mg, Amlodipine 10mg (re-added again today) Explained that he needs to take both medications concurrently Nurse visit in 2-4 weeks to reasses BP If BP is >140/90 on Lisinopril and Amlodipine max doses, will add Chlorthalidone 12.5mg BMP: today Lipid Panel: today ASCVD Risk: [...] consulting health care provider Assessment & Plan (09/20/2023 1:32 PM EDT): [...] 2 diabetes mellitus 06/16/2015 Assessment & Plan (05/14/2024 6:27 AM EDT): Not at goal, A1C 7.5 and he is gaining weight while taking Trulicity continue Metformin 1000mg BID Continue Trulicity 3mg weekly Will start PA for Dulce for improved weight loss, he will not take the two GLP1 agonists together Foot exam normal 05/2023, saw podiatry for other foot related concerns (callus) Assessment & Plan (09/20/2023 1:32 PM EDT): [...] Metformin to 1000mg BID A1C 9.8 Encounters * This document contains information received from the source organization and may not represent a complete record from that organization. Date Type Department Care Team Description 12/24/2024 4:00 PM EST Telemedicine [address] [address] Elin Rasheed MD Type 2 diabetes mellitus with hyperglycemia, without long-term current use of insulin (HCC) (Primary Dx); Obstructive sleep apnea syndrome; Class 2 severe obesity due to excess calories with serious comorbidity and body mass index (BMI) of 39.0 to 39.9 in adult; Difficulty concentrating 12/24/2024 Travel 12/12/[address] [address] Elin Rasheed MD 12/12/2024 Orders Only [address] [address] Elin Rasheed MD from Last 3 Months Immunizations Immunization Administration Dates Next Due DTP 01/15/1987,1986,1986 DTaP [...] Sign Reading Time Taken Comments Blood Pressure 183/106 05/07/2024 3:52 PM EDT Pulse 80 05/07/2024 3:52 PM EDT Temperature 36.3 C (97.3 F) 05/07/2024 3:52 PM EDT Respiratory Rate 17 05/07/2024 3:52 PM EDT Oxygen Saturation 97% 05/07/2024 3:52 PM EDT Inhaled Oxygen Concentration - - Weight 129 kg (284 lb) 05/07/2024 3:52 PM EDT Height 180.3 cm (5' 11 ) 05/07/2024 3:52 PM EDT Body Mass Index 39.61 05/07/2024 3:52 PM EDT Plan of Treatment Health Maintenance Due Date Last Done Comments Eye Exam 1996 HPV Vaccines (1 - Male 3-dose series) 2001 Hepatitis A Vaccines (1 of 2 - Risk 2-dose series) 2005 Pneumococcal Vaccine: Pediatrics (0 to 5 Years) and At-Risk Patients (6 to 49) Years (2 of 2 - PCV) 03/05/2017 03/05/2016 Diabetes: Urine Protein Screening 06/21/2020 06/22/2019 SDOH Screening 04/20/2024 04/21/2023 Diabetes: Foot Exam 07/13/2024 07/14/2023 DTaP/Tdap/Td Vaccines (6 - Td or Tdap) 09/18/2024 09/18/2014, 10/15/1998, 07/16/1990, Additional history exists COVID-19 Vaccine ( - season) 2024 05/23/2020 Influenza Vaccine (#1) 2024 , 12/16/2019, 11/03/2017, Additional history exists Diabetes: Hemoglobin A1C 02/05/2025 025, 04/29/2023, 12/27/2022, Additional history exists Disability Screening 05/06/2025 05/06/2024 Alcohol/Substance Use Screening 08/01/2025 08/01/2024 Depression Screening 08/01/2025 08/01/2024, 08/02/19 Lipid Panel 08/06/2025 08/06/2024 Tobacco Screening 12/24/2025 12/24/2024 Family Planning (PISQ) 12/25/2025 12/25/2024 Zoster Vaccines (1 of 2) 2036 RSV Patients and Patients Aged 60 years or older (1 - 1-dose 75+ series) 2061 HIB Vaccines Completed 04/15/1988 IPV Vaccines Completed 08/09/1990, 03/1987, 01/15/1987, Additional history exists Hepatitis B Vaccines Completed 05/21/1998, 12/19/1997, 07/26/1997 HIV Screening Completed 08/06/2024 Hepatitis C Screening Completed 08/06/2024 Meningococcal B Vaccine Aged Out No l onger eligible based on patient's age to complete this topic Meningococcal Vaccine Aged Out No precious ranjit eligible based on patient's age to complete this topic RSV under 20 months Aged Out No longe r eligible based on patient's age to complete this topic Rotavirus Vaccines Aged Out No longer eligible based on patient's age to complete this topic Goals Goal Patient Goal Type Associated Problems Recent Progress Patient-Stated? Author Help patients manage their type 2 diabetes Care Plan Help patients manage their type 2 diabetes Shruthi Jacome Weekly blood pressure task Care Plan Weekly blood pressure task Shruthi Jacome Help patients manage their type 2 diabetes Care Plan Help patients manage their type 2 diabetes Shruthi Jacome Patient has chronic kidney disease Care Plan Patient has chronic kidney disease Shruthi Jacome Procedures Procedure Name Priority Date/Time Associated Diagnosis Comments HEPATITIS C AB W/REFL TO HCV RNA, QN, PCR Routine 08/06/2024 8:12 AM EDT Other cirrhosis of liver (CMS/HCC) HIV 1/2 ANTIGEN/ANTIBODY, FOURTH GENERATION W/RFL Routine 08/06/2024 8:12 AM EDT Other cirrhosis of liver (CMS/HCC) HEMOGLOBIN A1C Routine 08/06/2024 8:12 AM EDT Type 2 diabetes mellitus without complication, without long-term current use of insulin (CMS/HCC) LIPID PANEL, STANDARD Routine 08/06/2024 8:12 AM EDT Type 2 diabetes mellitus without complication, without long-term current use of insulin (CMS/HCC) AMB REFERRAL TO PODIATRY Routine 07/14/2023 Corns and callosities Type 2 diabetes mellitus with hyperglycemia, without long-term current use of insulin (CMS/HCC) ZZZ HISTORICAL MICROALBUMIN, RANDOM Routine 06/22/2019 10:14 AM EDT from Last 3 Months or Most Recently Relevant to Health Maintenance Results * Hepatitis C Antibody with Reflex to HCV, RNA, Quantitative, Real-Time PCR (08/06/2024 8:12 AM EDT) Hepatitis C Antibody Nonreactive Nonreactive [facility] Comment:Antibodies to HCV no t detected; does not exclude early acuteHCV infection. Blood Venous blood specimen / Unknown 08/06/2024 8:12 AM EDT 08/06/2024 11:08 AM EDT Elin Rasheed MD LAB BLOOD ORDERABLES Final Res ult Performing Organization Address [facility]/ZIP Co de Phone Number [facility] [address] [place] [address] [phone] * HIV-1/2 Antigen and Antibodies, Fourth Generation, with Reflexes (08/06/2024 8:12 AM EDT) HIV AB/AG Nonreactive Nonreactive [facility] Comment:HIV-1 p24 Ag and/or HIV-1/HIV-2 Ab not detected.A test result that is nonreactive does not exclude thepossibility of exposure to or infection with HIV-1 and/orHIV-2. Nonreactive results in this assay for individualswith prior exposure to HIV-1 and/or HIV-2 may be due toantigen and antibody levels that are below the limit ofdetection of this assay.The [employer] HIV Ag/Ab Combo assay result andsupplemental assay results should be interpreted inconjunction with the patient's clinical presentation,history and other laboratory results. If the results areinconsistent with clinical evidence, additional testing issuggested to confirm the result. Blood Venous blood specimen / Unknown 08/06/2024 8:12 AM EDT 08/06/2024 11:08 AM EDT Elin Rasheed MD LAB BLOOD ORDERABLES Final Res ult Performing Organization Address City/[facility]/ZIP Co de Phone Number [facility] [address] [place] [address] [phone] * (ABNORMAL) Hemoglobin A1c (08/06/2024 8:12 AM EDT) Hemoglobin A1c 7.3(H) <6.0 % [facility] Comment:Hemoglobin A1C Refer ence Range Adults: 4.8 - 6.0 % Non diabetic: < 6.0 % Goal: < 7.0 %Additional Action Suggested: > 8.0 %Note: Hemoglobin A1c results are invalid for patients with abnormal amounts of HbF. Blood transfusions may impact the HbA1c concentration in the patient sample. Estimated Average Glucose 163 mg/dL [facility] Comment:eAG = Estimated ave rage glucose which is %A1C expressed asaverage glucose, using the formula of the Q8M-YbezrtgOwemdnz Glucose study (ADAG), Diabetes Care, Vol.31,#8,Sep. 2007 Blood Venous blood specimen / Unknown 08/06/2024 8:12 AM EDT 08/06/2024 11:08 AM EDT us Elin Rasheed MD LAB BLOOD ORDERABLES Final Res ult [facility] [address] [place] [address] [phone] * (ABNORMAL) Lipid Panel, Standard (08/06/2024 8:12 AM EDT) Triglycerides 338(H) <150 mg/dL [facility] Comment:Slight Lipemia.Melia able Triglyceride: less than 150 mg/dLBorderline High Triglyceride 150-199 mg/dLHigh Triglyceride: 200-499 mg/dLVery High Triglyceride: greater than or equal to 5OO mg/dL Cholesterol 160 <200 mg/dL [facility] Comment:Desirable Cholestero l: less than 200 mg/dLBorderline High Cholesterol: 200-239 mg/dLHigh Cholesterol: greater than 239 mg/dL LDL Cholesterol Calculated 66 <100 mg/dL [facility] Comment:Desirable LDL: less than 100 mg/dLNear Optimal/Above Optimal LDL: 110- 129 mg/dLBorderline High LDL: 130-159 mg/dLHigh LDL: 160-189 mg/dLVery High LDL: greater than or equal to 190 mg/dL HDL Cholesterol 27(L) >40 mg/dL [facility] Comment:Desirable HDL: great er than 40 mg/dL Note: This HDL assay may give artificially low results in patients with liver disease. Blood Venous blood specimen / Unknown 08/06/2024 8:12 AM EDT 08/06/2024 11:08 AM EDT Elin Rasheed MD LAB BLOOD ORDERABLES Final Res ult [facility] [address] [place] [address] [phone] * Referral to Podiatry (07/14/2023) Elin Rasheed MD OUTPATIENT REFERRAL ORDERABLES Final Result * MICROALBUMIN, RANDOM (06/22/2019 10:14 AM EDT) CREATININE, RANDOM URINE 255.18 MG/DL [facility] MICALB/CRE RATIO RANDOM URINE 9.0 ug/mg cr [facility] Comment: Albumin/Creatinine Ratio Reference Ranges: Normal: < 30 ug/mg creatinine Microalbuminuria: 30 - 300 ug/mg creatinine Clinical Albuminuria: > 300 ug/mg creatinine MICROALBUMIN, RANDOM URINE 23.0 MG/L [facility] 06/22/2019 10:1 4 AM EDT Maria E Varghese NP HISTORICAL/NON ORDERABLE LABS Fi nal Result Performing Organization Address [facility]/ZIP Co de Phone Number [facility] [address] from Last 3 Months or Most Recently Relevant to Health Maintenance Additional Health Concerns Active Problems Noted Date Diagnosed Date Help patients manage their type 2 diabetes 12/26 Weekly blood pressure task 12/26/2024 Help patients manage their type 2 diabetes 12/26 Patient has chronic kidney disease 12/26/2024 Insurance [facility] [employer] Care Teams Brick Grader Relationship Specialty Start Date End Date Elin Rasheed MD [address] [place] [id number] PCP - General Family Medicine 03/26/20
--- OUTSIDE RECORDS SUMMARY | 2025-01-26 18:48 | XMS_ITS | Encounter Summary ---
Author Organization [employer] Address [address] [place] [address] [address] [place] [address] Care Team Providers Care Neurosurgeon Name Role Phone Elin Rasheed MD Primary Care Provider [phone] Reason for Visit * Reason Comments Med Refill Encounter Details Date Type Department Care Team ([facility] st Contact Info) Description 10/11/2022 Refill [facility] [address] [place], [place] [phone] Tiffany Arrington DO [address] [place], [place] [phone] Social History Tobacco Use Types Packs/Day Years [...] as of this encounter Plan of Treatment Not on file documented as of this encounter Visit Diagnoses Not on filedocumented in this encounter Care Teams Neurosurgeon Relationship Specialty Start Date End Date Elin Rasheed MD [address] [place] [address] PCP - General Family Medicine 03/26/20 documented as of this encounter
--- OUTSIDE RECORDS SUMMARY | 2025-01-26 18:48 | XMS_ITS | Encounter Summary ---
Author Organization [employer] Address [address] [place] [address] [address] [place] [address] Care Team Providers Care Retail Special Event Associate Name Role Phone Elin Rasheed MD Primary Care Provider [phone] Reason for Referral * Consultation (Routine) - Closed Specialty Diagnoses / Procedures Referred By Contac t Referred To Contact Physical Therapy Diagnoses Bulging of lumbar intervertebral disc Sciatica of left side Elin Rasheed MD [address] [place] [address] Phone: tel: fax: Physical Therapy, AT [address] [place] [address] Dr [address] [place], [place] Phone: tel: fax: Referral ID Status Reason Start Date Expiration Date V isits Requested Visits Authorized [id number] Closed Specialty Services Required 07/08/2023 07/07/2024 1 1 Encounter Details Date Type Department Care Team (Late st Contact Info) Description 07/08/2023 Orders Only [facility] [address] [place], [place] [phone] Elin Rasheed MD [address] [place], [place] [phone] Bulging of lumbar intervertebral disc (Primary Dx); [...] as of this encounter Plan of Treatment Scheduled Referrals Name Type Priority Associated Diagnoses Orde r Schedule Referral to Physical Therapy Outpatient Referral Routine Bulging of lumbar intervertebral disc Sciatica of left side Expected: 07/08/2023 (Approximate), Expires: 07/07/2024 documented as of this encounter Visit Diagnoses Diagnosis Bulging of lumbar intervertebral disc- Primary Sciatica of left side documented in this encounter Care Teams Retail Special Event Associate Relationship Specialty Start Date End Date Elin Rasheed MD [address] [place] [address] PCP - General Family Medicine 03/26/20 documented as of this encounter
--- OUTSIDE RECORDS SUMMARY | 2025-01-26 18:48 | XMS_ITS | Encounter Summary ---
Author Organization [employer] Address [address] [facility] [address] [place] [address] Care Team Providers Care Insurance Loss Adjuster Name Role Phone Elin Rasheed MD Primary Care Provider [phone] Reason for Visit * Reason Onset Date Comments Med Refill 07/04/2023 Encounter Details Date Type Department Care Team ([facility] st Contact Info) Description 07/04/2023 Refill [facility] [address] [place] [address] Elin Rasheed MD [address] [place] [address] Social History Tobacco Use Types Packs/Day Years [...] t he electric, gas, oil or water [employer] threatened to shut off services in your [...] on filedocumented in this encounter Care Teams Insurance Loss Adjuster Relationship Specialty Start Date End Date Elin Rasheed MD [address] [place] [id number] PCP - General Family Medicine 03/26/20 documented as of this encounter
--- OUTSIDE RECORDS SUMMARY | 2025-01-26 18:48 | XMS_ITS | Encounter Summary ---
Author Organization [employer] Address 75 [facility] 7t [place] [address] Care Team Providers Care Shipmaster Name Role Phone Elin Rasheed MD Primary Care Provider [phone] Encounter Details Date Type Department Care Team ([facility] st Contact Info) Description 09/04/2024 Orders Only [facility] MEDICINE [address] [place], [place] [phone] Elin Rasheed MD 230 [place], [place] [phone] Social History Tobacco Use Types Packs/Day Years [...] the past 12 months, has t he [employer], gas, oil or water company threatened to [...] documented as of this encounter Care Teams Shipmaster Relationship Specialty Start Date End Date Elin Rasheed MD 230 [place] [address] PCP - General Family Medicine 03/26/20 documented as of this encounter
--- OUTSIDE RECORDS SUMMARY | 2025-01-26 18:48 | XMS_ITS | Encounter Summary ---
Author Organization [employer] Address 75 [facility] 7t [place] [address] Care Team Providers Care Mess Cook Name Role Phone Elin Rasheed MD Primary Care Provider [phone] Encounter Details Date Type Department Care Team ([facility] st Contact Info) Description 12/12/2024 Orders Only [facility] MEDICINE 230 [place], [place] [phone] Elin Rasheed MD 230 [place], [place] [phone] Social History Tobacco Use Types Packs/Day Years [...] the past 12 months, has t he [employer], gas, oil or water company threatened to [...] documented as of this encounter Care Teams Mess Cook Relationship Specialty Start Date End Date Elin Rasheed MD 230 [place] [address] PCP - General Family Medicine 03/26/20 documented as of this encounter
--- OUTSIDE RECORDS SUMMARY | 2025-01-26 18:48 | XMS_ITS | Encounter Summary ---
Author Organization [employer] Address [address] [place] [address] 7 [place] [address] Care Team Providers Care Bead Worker Sewing Name Role Phone Elin Rasehed MD Primary Care Provider [phone] Reason for Visit * Reason Onset Date Comments Med Refill 10/12/2022 Encounter Details Date Type Department Care Team (Late st Contact Info) Description 10/12/[address] [facility] MEDICINE 230 [place], [place] [phone] Elin Rasheed MD 230 [place] [address] Sciatica of left side Social History Tobacco [...] side documented in this encounter Care Teams Bead Worker Sewing Relationship Specialty Start Date End Date Elin Rasheed MD [address] [place] [address] [phone] PCP - General Family Medicine 03/26/20 documented as of this encounter
--- OUTSIDE RECORDS SUMMARY | 2025-01-26 18:48 | XMS_ITS | Encounter Summary ---
Author Organization [employer] Address 75 [facility] 7t [place] [address] Care Team Providers Care Sales Communications Manager Name Role Phone Elin Rasheed MD Primary Care Provider [phone] Encounter Details Date Type Department Care Team ([facility] st Contact Info) Description 11/26/2022 Orders Only [facility] MEDICINE 230 [place], [place] [phone] Elin Rasheed MD 230 [place], [place] [phone] Sciatica of left side Social History Tobacco [...] t he electric, gas, oil or water [employer] threatened to shut off services in your [...] side documented in this encounter Care Teams Sales Communications Manager Relationship Specialty Start Date End Date Elin Rasheed MD [address] [place] [address] PCP - General Family Medicine 03/26/20 documented as of this encounter
--- OUTSIDE RECORDS SUMMARY | 2025-01-26 18:48 | XMS_ITS | Encounter Summary ---
Author Organization [employer] Address 75 [facility] 7t [place] [address] Care Team Providers Care Precision Filer Hand Name Role Phone Elin Rasheed MD Primary Care Provider [phone] Encounter Details Date Type Department Care Team ([facility] st Contact Info) Description 11/22/2023 Orders Only [facility] MEDICINE 230 [place], [place] [phone] Elin Rasheed MD 230 [place], [place] [phone] Social History Tobacco Use Types Packs/Day Years [...] on filedocumented in this encounter Care Teams Precision Filer Hand Relationship Specialty Start Date End Date Elin Rasheed MD 230 [place] [address] PCP - General Family Medicine 03/26/20 documented as of this encounter
--- OUTSIDE RECORDS SUMMARY | 2025-01-26 18:48 | XMS_ITS | Encounter Summary ---
Author Organization [employer] Address [address] [place] [address] 7 [place] [address] Care Team Providers Care X [employer] Electronics Wireman Name Role Phone Elin Rasheed MD Primary Care Provider [phone] Reason for Referral * Consultation (Routine) - Closed Specialty Diagnoses / Procedures Referred By Jarad aguilar Referred To Contact Podiatry Diagnoses [place] or callus Elin Rasheed MD 230 [place] [address] Phone: tel: fax: Referral ID Status Reason Start Date Expiration Date V isits Requested Visits Authorized [id number] Closed Specialty Services Required 05/28/2024 05/28/2025 1 1 Encounter Details Date Type Department Care Team (Late st Contact Info) Description 05/28/2024 Orders Only [facility] MEDICINE [address] [place] [address] [phone] Elin Rasheed MD 230 [place], [place] [phone] [place] or callus (Primary Dx) Social History Tobacco Use Types Packs/Day Years [...] Associated Diagnoses Orde r Schedule Referral to Podiatry Outpatient Referral Routine [place] or callus Expected: 05/28/2024 (Approximate), Expires: 05/28/2025 documented as of this encounter Visit Diagnoses Diagnosis [place] or callus- Primary documented in this encounter Care Teams [employer] Wireman Relationship Specialty Start Date End Date Elin Rasheed MD 230 [place] [address] PCP - General Family Medicine 03/26/20 documented as of this encounter"
--- OUTSIDE RECORDS SUMMARY | 2025-01-26 18:48 | XMS_ITS | Encounter Summary ---
Author Organization [employer] Address 75 [facility] 7t [place] [address] Care Team Providers Care Template Fitter Name Role Phone Elin Rasheed MD Primary Care Provider [phone] Reason for Visit * Reason Onset Date Comments Med Refill 09/04/2024 Encounter Details Date Type Department Care Team ([facility] st Contact Info) Description 09/04/2024 Refill [facility] MEDICINE 230 [place] [address] Elin Rasheed MD 230 [place] [address] Social History Tobacco Use Types Packs/Day Years [...] documented as of this encounter Care Teams Template Fitter Relationship Specialty Start Date End Date Elin Rasheed MD [address] [place] [address] PCP - General Family Medicine 03/26/20 documented as of this encounter
--- OUTSIDE RECORDS SUMMARY | 2025-01-26 18:48 | XMS_ITS | Encounter Summary ---
Author Organization [employer] Address 75 [facility] 7t [place] [address] Care Team Providers Care Furniture Mover Driver Name Role Phone Elin Rasheed MD Primary Care Provider Reason for Visit * Reason Comments Med Refill Encounter Details Date Type Department Care Team ([facility] Contact Info) Description 12/04/2022 Refill [facility] MEDICINE 230 [place], [place] [phone] Elin Rasheed MD 230 [place] [address] Social History Tobacco Use Types Packs/Day Years [...] on filedocumented in this encounter Care Teams Furniture Mover Driver Relationship Specialty Start Date End Date Elin Rasheed MD [address] [place] [address] PCP - General Family Medicine 03/26/20 documented as of this encounter
--- OUTSIDE RECORDS SUMMARY | 2025-01-26 18:48 | XMS_ITS | Encounter Summary ---
Author Organization [employer] Address 75 [facility] 7t [place] [address] Care Team Providers Care Top Ironer Name Role Phone Elin Rasheed MD Primary Care Provider [phone] Reason for Visit * Reason Onset Date Comments Med Refill 03/15/2024 Encounter Details Date Type Department Care Team (Late st Contact Info) Description 03/15/2024 Refill [facility] MED & PEDS [address] [place] [address] Elin Rasheed MD 230 [place] [address] Social History Tobacco Use Types Packs/Day Years [...] on filedocumented in this encounter Care Teams Top Ironer Relationship Specialty Start Date End Date Elin Rasheed MD [address] [place] [address] PCP - General Family Medicine 03/26/20 documented as of this encounter
--- OUTSIDE RECORDS SUMMARY | 2025-01-26 18:48 | XMS_ITS | Encounter Summary ---
Author Organization [employer] Address 75 [facility] 7t [place] [address] Care Team Providers Care Buttonhole Maker Hand Name Role Phone Elin Rasheed MD Primary Care Provider [phone] Reason for Visit * Reason Onset Date Comments Med Refill 02/21/2024 Encounter Details Date Type Department Care Team (Late st Contact Info) Description 02/21/2024 Refill [facility] MED & PEDS [address] [place] [address] Elin Rasheed MD 230 [place] [address] Social History Tobacco Use Types Packs/Day Years [...] on filedocumented in this encounter Care Teams Buttonhole Maker Hand Relationship Specialty Start Date End Date Elin Rasheed MD [address] [place] [address] PCP - General Family Medicine 03/26/20 documented as of this encounter
--- OUTSIDE RECORDS SUMMARY | 2025-01-26 18:48 | XMS_ITS | Encounter Summary ---
Author Organization [employer] Address 75 [facility] 7t [place] [address] Care Team Providers Care Finance Admin Name Role Phone Elin Rasheed MD Primary Care Provider [phone] Reason for Visit * Reason Onset Date Comments Med Refill 10/17/2024 Encounter Details Date Type Department Care Team (Late st Contact Info) Description 10/17/2024 Refill [facility] MEDICINE 230 [place] [address] Elin Rasheed MD 230 [place] [address] Social History Tobacco Use Types Packs/Day Years [...] documented as of this encounter Care Teams Finance Admin Relationship Specialty Start Date End Date Elin Rasheed MD [address] [place] [address] PCP - General Family Medicine 03/26/20 documented as of this encounter
[2025-01-26 19:31] VITALS: BP 147/82; PULSE 106; RESP 18; TEMP 36.7; O2SAT 99
== END 2025-01-26 19:32 | disposition home or self-care (01) ==
PROVIDERS: Emergency Provider Emergency Medicine Emergency Medical Services; PCP General Practice
DX: S61.210A Laceration without foreign body of right index finger without damage to nail, initial encounter (principal); W26.8XXA Contact with other sharp object(s), not elsewhere classified, initial encounter; Y93.89 Activity, other specified; Y92.89 Other specified places as the place of occurrence of the external cause; Y99.8 Other external cause status
CPT/HCPCS: 90471; 90715; 99282; 99284

== ENCOUNTER 2025-01-27 18:53 | Emergency (ER) | payer BC, SELFPAY ==
[2025-01-27 19:08] VITALS: BP 136/71; PULSE 98; RESP 18; TEMP 36.7; O2SAT 98; BMI 38.1
--- NOTE | 2025-01-27 19:16 | ED.EXTPRO ---
HPI - Extremity Problem General Chief complaint: Extremity Injury, Upper Stated complaint: Bleeding from wound, repaired yesterday Time Seen by Provider: 01/27/25 19:12 Source: patient Mode of arrival: ambulatory Limitations: no limitations History of Present Illness ED Provider: HUMA MAYS PA-C HPI Narrative: 39 year old male presents to the ED today for concerns of bleeding from wound. Patient presented to our facility yesterday after sustaining an avulsion injury to the finger pad of his right index finger. Dermabond was applied and he was discharged home. He states that today he accidentally hit the affected finger and noticed blood on his guaze. He did not remove the dressing, instead came to the ED as he was concerned the area may have re-opened. No other concerns. He has been taking 1000 mg Tylenol as needed for pain. No fever/chills. Related Data Previous Rx's ?Medication ?Instructions ?Recorded ondansetron 4 mg disintegrating 4 mg PO Q8H PRN nausea and 10/09/21 tablet vomiting #20 tabs cyclobenzaprine 10 mg tablet 10 mg PO TID PRN muscle spasm #10 08/17/22 tabs tramadol 50 mg tablet 50 mg PO BID PRN pain #7 tabs 08/17/22 oxycodone 5 mg tablet 5 mg PO Q6H PRN pain #10 tabs 09/10/22 ketorolac 10 mg tablet 10 mg PO Q8H PRN pain #12 tabs 09/01/23 lisinopril 40 mg tablet (Zestril) 40 mg PO DAILY #90 tabs 09/01/23 metoclopramide HCl 5 mg tablet 5 mg PO DAILY PRN nausea and 09/01/23 (Reglan) vomiting #12 tabs levofloxacin 500 mg tablet 500 mg PO DAILY #5 tabs 07/31/24 metronidazole 500 mg tablet 500 mg PO Q8H #15 tabs 07/31/24 Allergies Allergy/AdvReac Type Severity Reaction Status Date / Time Sulfa (Sulfonamide Allergy Unknown Unknown Verified 01/27/25 19:09 Antibiotics) sulfamethoxazole (From Allergy Unknown UNKNOWN Verified 01/27/25 19:09 BACTRIM) trimethoprim (From BACTRIM) Allergy Unknown UNKNOWN Verified 01/27/25 19:09 Review of Systems Review of Systems: Yes all other systems are reviewed and are negative PMFSH Past Medical History Attestation statement: The following information was validated with the patient. Source: old records reviewed and nursing notes reviewed Medical History Migraine Diabetes HTN (hypertension) Social History Social History Alcohol intake: never Patient Tobacco Use Status: Never used Tobacco Advance Directives: No Advance Directives Information Provided: Yes Do you have a plan to hurt others: No Plan Physical Exam Vital Signs: Vital Signs: Last Vital Signs Temp 98.1 F 01/27/25 19:32 Pulse 98 01/27/25 19:32 Resp 18 01/27/25 19:32 BP 136/71 01/27/25 19:32 Pulse Ox 98 01/27/25 19:32 O2 Del Method Room Air 01/27/25 19:32 BMI result Body Mass Index 38.1 vital signs stable General: Well appearing, in no acute distress. Skin: Warm, dry, intact. No rashes or lesions. Head: Normocephalic, atraumatic. Cardiac: Chest wall symmetric. RRR Lungs: Normal respiratory effort without accessory muscle use Ext: +avulsion injury to finger pad of right 2nd digit with overlying thick layer of dermabond in place, there is a small area, approximately the size of the tip of a pen, with overlying blood. no active bleeding. FROM intact to digit, finger strength intact, finger to thumb opposition intact. Neuro: AOx3. Normal speech. Ambulating with steady gait Medical Decision Making Medical Decision Making MDM Narrative: 39 year old male presents to the ED today for concerns of bleeding from wound. vital signs stable. he is well appearing and in NAD. on exam, avulsion injury to finger pad of right 2nd digit with overlying thick layer of dermabond in place, there is a small area, approximately the size of the tip of a pen, with overlying blood. no active bleeding. FROM intact to digit, finger strength intact, finger to thumb opposition intact. Plan for dermabond application and disposition home. Differential Diagnosis Differential Diagnoses: The differential diagnosis associated with the presentation includes as above. Admission/Observation not indicated. External Record Review External record reviewed: Inpatient record Prescription Management I considered prescription management with: Pain Medication Social Determinants Patient?s care significantly limited by Social Determinants of Health including: Other Social Determinant of Health Critical Care Time Critical Care Time Critical Care Time: No Discharge Plan Discharge Clinical Impression: Bleeding from wound Patient Disposition: Home, Self-Care Additional Instructions: Dermabond was applied to your finger. This will wear off in 5-7 days. You can wash the area normally after 6 hours. Please keep the area out of the sunlight for the next 6 months to help prevent scarring.? If you develop redness or swelling at the site of your laceration or note any discharge/ fluid coming from the laceration, please come back to the ER for a wound check. Return to the Emergency Department if you experience discharge from your laceration, redness around your laceration, warmth around your laceration, fever, vomiting, numbness, tingling, or any other concerning symptoms. In the case of an emergency call 911. Prescriptions: No Action ondansetron 4 mg tablet,disintegrating 4 mg PO Q8H PRN (Reason: nausea and vomiting) Qty: 20 0RF tramadol 50 mg tablet 50 mg PO BID PRN (Reason: pain) Qty: 7 0RF cyclobenzaprine 10 mg tablet 10 mg PO TID PRN (Reason: muscle spasm) Qty: 10 0RF oxycodone 5 mg tablet 5 mg PO Q6H PRN (Reason: pain) Qty: 10 0RF Rx Instructions: Partial Fill upon patient request. ketorolac 10 mg tablet 10 mg PO Q8H PRN (Reason: pain) Qty: 12 0RF Rx Instructions: Do not take this medication with ibuprofen, naproxen, only Tylenol if needed metoclopramide HCl [Reglan] 5 mg tablet 5 mg PO DAILY PRN (Reason: nausea and vomiting) Qty: 12 0RF Rx Instructions: Take together with ketorolac p.r.n. migraine headache lisinopril [Zestril] 40 mg tablet 40 mg PO DAILY Qty: 90 0RF levofloxacin 500 mg tablet 500 mg PO DAILY Qty: 5 0RF metronidazole 500 mg tablet 500 mg PO Q8H Qty: 15 0RF Referrals: Physician,Unknown J [Physician, Medical] Interventions: ED Discharge Assessment Last Done: 01/27/25 19:32 Discharge Date/Time: 01/27/25 19:33 Print Language: Kinyarwanda
--- OUTSIDE RECORDS SUMMARY | 2025-01-27 19:23 | XMS_ITS | Encounter Summary ---
Author Organization [employer] Address 75 [facility] 7t [place] [address] Care Team Providers Care Pottery Decorator Name Role Phone Elin Rasheed MD Primary Care Provider [phone] Reason for Visit * Reason Onset Date Comments Med Refill 02/21/2024 Encounter Details Date Type Department Care Team (Late st Contact Info) Description 02/21/2024 Refill [facility] MED & PEDS [address] [place] [address] Elin Rasheed MD 230 [place] [address] Social History Tobacco Use Types Packs/Day Years [...] on filedocumented in this encounter Care Teams Pottery Decorator Relationship Specialty Start Date End Date Elin Rasheed MD [address] [place] [address] PCP - General Family Medicine 03/26/20 documented as of this encounter
--- OUTSIDE RECORDS SUMMARY | 2025-01-27 19:23 | XMS_ITS | Clinical Summary ---
Author Organization [employer] Address 75 [facility] 7t [place] [address] Care Team Providers Care Stock Grader Name Role Phone Elin Rasheed MD Primary Care Provider [phone] Allergies No known active allergies Medications * [...] Team Description 12/24/2024 4:00 PM EST Telemedicine [address] [address] Elin Rasheed MD Type 2 diabetes mellitus with hyperglycemia, without long-term current use of insulin (HCC) (Primary Dx); Obstructive sleep apnea syndrome; Class 2 severe obesity due to excess calories with serious comorbidity and body mass index (BMI) of 39.0 to 39.9 in adult; Difficulty concentrating 12/24/2024 Travel 12/12/[address] [address] Elin Rasheed MD 12/12/2024 Orders Only [address] [address] Elin Rasheed MD from Last 3 Months [...] AM EDT) Hepatitis C Antibody Nonreactive Nonreactive [facility] Comment:Antibodies to HCV no t detected; does not exclude early acuteHCV infection. Blood Venous blood specimen / Unknown 08/06/2024 8:12 AM EDT 08/06/2024 11:08 AM EDT Elin Rasheed MD LAB BLOOD ORDERABLES Final Res ult Performing Organization Address [facility]/ZIP Co de Phone Number [facility] [address] [place] [address] [phone] * HIV-1/2 Antigen and Antibodies, Fourth Generation, with Reflexes (08/06/2024 8:12 AM EDT) HIV AB/AG Nonreactive Nonreactive [facility] Comment:HIV-1 p24 Ag and/or HIV-1/HIV-2 Ab not detected.A test result that is nonreactive does not exclude thepossibility of exposure to or infection with HIV-1 and/orHIV-2. Nonreactive results in this assay for individualswith prior exposure to HIV-1 and/or HIV-2 may be due toantigen and antibody levels that are below the limit ofdetection of this assay.[employer] HIV Ag/Ab Combo assay result andsupplemental assay results should be interpreted inconjunction with the patient's clinical presentation,history and other laboratory results. If the results areinconsistent with clinical evidence, additional testing issuggested to confirm the result. Blood Venous blood specimen / Unknown 08/06/2024 8:12 AM EDT 08/06/2024 11:08 AM EDT Elin Rasheed MD LAB BLOOD ORDERABLES Final Res ult Performing Organization Address City/[facility]/ZIP Co de Phone Number [facility] [address] [place] [address] [phone] * (ABNORMAL) Hemoglobin A1c (08/06/2024 8:12 AM EDT) Hemoglobin A1c 7.3(H) <6.0 % [facility] Comment:Hemoglobin A1C Refer ence Range Adults: 4.8 - 6.0 % Non diabetic: < 6.0 % Goal: < 7.0 %Additional Action Suggested: > 8.0 %Note: Hemoglobin A1c results are invalid for patients with abnormal amounts of HbF. Blood transfusions may impact the HbA1c concentration in the patient sample. Estimated Average Glucose 163 mg/dL [facility] Comment:eAG = Estimated ave rage glucose which is %A1C expressed asaverage glucose, using the formula of the H2Y-RobwmvvExqhonr Glucose study (ADAG), Diabetes Care, Vol.31,#8,Sep. 2007 Blood Venous blood specimen / Unknown 08/06/2024 8:12 AM EDT 08/06/2024 11:08 AM EDT us Elin Rasheed MD LAB BLOOD ORDERABLES Final Res ult [facility] [address] [place] [address] [phone] * (ABNORMAL) Lipid Panel, Standard (08/06/2024 8:12 AM EDT) Triglycerides 338(H) <150 mg/dL [facility] Comment:Slight Lipemia.Melia able Triglyceride: less than 150 mg/dLBorderline High Triglyceride 150-199 mg/dLHigh Triglyceride: 200-499 mg/dLVery High Triglyceride: greater than or equal to 5OO mg/dL Cholesterol 160 <200 mg/dL [facility] Comment:Desirable Cholestero l: less than 200 mg/dLBorderline High Cholesterol: 200-239 mg/dLHigh Cholesterol: greater than 239 mg/dL LDL Cholesterol Calculated 66 <100 mg/dL [facility] Comment:Desirable LDL: less than 100 mg/dLNear Optimal/Above Optimal LDL: 110- 129 mg/dLBorderline High LDL: 130-159 mg/dLHigh LDL: 160-189 mg/dLVery High LDL: greater than or equal to 190 mg/dL HDL Cholesterol 27(L) >40 mg/dL [facility] Comment:Desirable HDL: great er than 40 mg/dL Note: This HDL assay may give artificially low results in patients with liver disease. Blood Venous blood specimen / Unknown 08/06/2024 8:12 AM EDT 08/06/2024 11:08 AM EDT Elin Rasheed MD LAB BLOOD ORDERABLES Final Res ult [facility] [address] [place] [address] [phone] * Referral to Podiatry (07/14/2023) Elin [...] LABS Fi nal Result Performing Organization Address [facility]/ZIP Co de Phone Number [facility] [phone] from Last 3 Months or Most Recently Relevant to Health Maintenance Additional Health Concerns Active Problems Noted Date Diagnosed Date Help patients manage their type 2 diabetes 12/26 Weekly blood pressure task 12/26/2024 Help patients manage their type 2 diabetes 12/26 Patient has chronic kidney disease 12/26/2024 Insurance [facility] Care Teams Stock Grader Relationship Specialty Start Date End Date Elin Rasheed MD [address] [place] [phone] PCP - General Family Medicine 03/26/20
--- OUTSIDE RECORDS SUMMARY | 2025-01-27 19:23 | XMS_ITS | Encounter Summary ---
Author Organization [employer] Address 75 [facility] 7t [place] [address] Care Team Providers Care Gis Scientist Name Role Phone Elin Rasheed MD Primary Care Provider [phone] Encounter Details Date Type Department Care Team ([facility] st Contact Info) Description 11/26/2022 Orders Only [facility] MEDICINE 230 [place], [place] [phone] Elin Rasheed MD 230 [place], [place] [phone] Sciatica of left side Social History Tobacco [...] t he electric, gas, oil or water [employer] threatened to shut off services in your [...] side documented in this encounter Care Teams Gis Scientist Relationship Specialty Start Date End Date Elin Rasheed MD [address] [place] [id number] PCP - General Family Medicine 03/26/20 documented as of this encounter
--- OUTSIDE RECORDS SUMMARY | 2025-01-27 19:23 | XMS_ITS | Encounter Summary ---
Author Organization [employer] Address [address] [facility] 7t [place] [address] Care Team Providers Care Automatic Drilling Machine Operator Name Role Phone Elin Rasheed MD Primary Care Provider [phone] Reason for Visit * Reason Onset Date Comments Med Refill 10/17/2024 Encounter Details Date Type Department Care Team (Late st Contact Info) Description 10/17/2024 Refill [facility] MEDICINE [address] [place] [address] Elin Rasheed MD [address] [place] [address] Social History Tobacco Use Types Packs/Day Years [...] documented as of this encounter Care Teams Automatic Drilling Machine Operator Relationship Specialty Start Date End Date Elin Rasheed MD [address] [place] [address] PCP - General Family Medicine 03/26/20 documented as of this encounter
--- OUTSIDE RECORDS SUMMARY | 2025-01-27 19:23 | XMS_ITS | Encounter Summary ---
Author Organization [employer] Address 75 [facility] 7t [place] [address] Care Team Providers Care Quality Assurance Director Name Role Phone Elin Rasheed MD Primary Care Provider [phone] Reason for Visit * Reason Onset Date Comments Med Refill 03/15/2024 Encounter Details Date Type Department Care Team (Late st Contact Info) Description 03/15/2024 Refill [facility] [address] [place] [address] Elin Rasheed MD [address] [place] [address] Social History Tobacco Use Types Packs/Day Years [...] on filedocumented in this encounter Care Teams Quality Assurance Director Relationship Specialty Start Date End Date Elin Rasheed MD [address] [place] [id number] PCP - General Family Medicine 03/26/20 documented as of this encounter
--- OUTSIDE RECORDS SUMMARY | 2025-01-27 19:23 | XMS_ITS | Encounter Summary ---
Author Organization [employer] Address 75 [facility] 7t [place] [address] Care Team Providers Care Community Development Coordinator Name Role Phone Elin Rasheed MD Primary Care Provider [phone] Encounter Details Date Type Department Care Team ([facility] st Contact Info) Description 09/04/2024 Orders Only [facility] MEDICINE [address] [place], [place] [phone] Elin Rasheed MD [address] [place], [place] [phone] Social History Tobacco Use Types Packs/Day Years [...] the past 12 months, has t he [employer], gas, oil or water company threatened to [...] documented as of this encounter Care Teams Community Development Coordinator Relationship Specialty Start Date End Date Elin Rasheed MD [address] [place] [address] PCP - General Family Medicine 03/26/20 documented as of this encounter
--- OUTSIDE RECORDS SUMMARY | 2025-01-27 19:23 | XMS_ITS | Encounter Summary ---
Author Organization [employer] Address [address] [facility] 7t [place] [address] Care Team Providers Care Podiatry Professor Name Role Phone Elin Rasheed MD Primary Care Provider [phone] Reason for Visit * Reason Comments Med Refill Encounter Details Date Type Department Care Team ([facility] Contact Info) Description 12/04/2022 Refill [facility] MEDICINE 230 [place], [place] [phone] Elin Rasheed MD [address] [place] [address] Social History Tobacco Use Types Packs/Day Years [...] on filedocumented in this encounter Care Teams Podiatry Professor Relationship Specialty Start Date End Date Elin Rasheed MD [address] [place] [address] PCP - General Family Medicine 03/26/20 documented as of this encounter
--- OUTSIDE RECORDS SUMMARY | 2025-01-27 19:23 | XMS_ITS | Encounter Summary ---
Author Organization [employer] Address [address] [place] [address] 7 [place] [address] Care Team Providers Care School Plant Consultant Name Role Phone Elin Rasheed MD Primary Care Provider [phone] Reason for Referral * Consultation (Routine) - Closed Specialty Diagnoses / Procedures Referred By Jarad aguilar Referred To Contact Podiatry Diagnoses [place] or callus Elin Rasheed MD [address] [place] [address] Phone: tel: fax: Referral ID Status Reason Start Date Expiration Date V isits Requested Visits Authorized [id number] Closed Specialty Services Required 05/28/2024 05/28/2025 1 1 Encounter Details Date Type Department Care Team (Late st Contact Info) Description 05/28/2024 Orders Only [facility] MEDICINE [address] [place] [address] [phone] Elin Rasheed MD [address] [place], [place] [phone] [place] or callus (Primary Dx) Social History Tobacco [...] Schedule Referral to Podiatry Outpatient Referral Routine [place] or callus Expected: 05/28/2024 (Approximate), Expires: 05/28/2025 documented as of this encounter Visit Diagnoses Diagnosis [place] or callus- Primary documented in this encounter Care Teams School Plant Consultant Relationship Specialty Start Date End Date Elin Rasheed MD [address] [place] [address] PCP - General Family Medicine 03/26/20 documented as of this encounter
--- OUTSIDE RECORDS SUMMARY | 2025-01-27 19:23 | XMS_ITS | Encounter Summary ---
Author Organization [employer] Address [address] [place] [address] 7 [place] [address] Care Team Providers Care Work Order Sorting Clerk Name Role Phone Elni Rasheed MD Primary Care Provider [phone] Reason for Visit * Reason Comments Med Refill Encounter Details Date Type Department Care Team ([facility] st Contact Info) Description 10/11/[address] [facility] MEDICINE [address] [place], [place] [phone] Tiffany Arrington DO [address] [place], [place] [phone] Social History Tobacco Use Types Packs/Day Years [...] on filedocumented in this encounter Care Teams Work Order Sorting Clerk Relationship Specialty Start Date End Date Elin Rasheed MD [address] [place] [address] PCP - General Family Medicine 03/26/20 documented as of this encounter
--- OUTSIDE RECORDS SUMMARY | 2025-01-27 19:23 | XMS_ITS | Encounter Summary ---
Author Organization [employer] Address [address] [facility] 7t [place] [address] Care Team Providers Care Integrated Marketing Manager Name Role Phone Elin Rasheed MD Primary Care Provider [phone] Reason for Visit * Reason Onset Date Comments Med Refill 07/04/2023 Encounter Details Date Type Department Care Team ([facility] st Contact Info) Description 07/04/[address] [facility] MEDICINE [address] [place] [address] Elin Rasheed MD [address] [place] [address] Social History Tobacco Use Types Packs/Day Years [...] t he electric, gas, oil or water [employer] threatened to shut off services in your [...] on filedocumented in this encounter Care Teams Integrated Marketing Manager Relationship Specialty Start Date End Date Elin Rasheed MD [address] [place] [address] PCP - General Family Medicine 03/26/20 documented as of this encounter
--- OUTSIDE RECORDS SUMMARY | 2025-01-27 19:23 | XMS_ITS | Encounter Summary ---
Author Organization [employer] Address [address] [facility] 7t [place] [address] Care Team Providers Care Chip Crusher Operator Name Role Phone Elin Rasheed MD Primary Care Provider [phone] Reason for Visit * Reason Onset Date Comments Med Refill 09/04/2024 Encounter Details Date Type Department Care Team ([facility] st Contact Info) Description 09/04/2024 Refill [facility] MEDICINE [address] [place] [address] Elin Rasheed MD [address] [place] [address] Social History Tobacco Use Types Packs/Day Years [...] documented as of this encounter Care Teams Chip Crusher Operator Relationship Specialty Start Date End Date Elin Rasheed MD [address] [place] [address] PCP - General Family Medicine 03/26/20 documented as of this encounter
--- OUTSIDE RECORDS SUMMARY | 2025-01-27 19:23 | XMS_ITS | Encounter Summary ---
Author Organization [employer] Address [address] [place] [address] 7 [place] [address] Care Team Providers Care Wage Analyst Name Role Phone Elin Rasheed MD Primary Care Provider [phone] Reason for Visit * Reason Onset Date Comments Med Refill 10/12/2022 Encounter Details Date Type Department Care Team (Late st Contact Info) Description 10/12/2022 Refill [facility] MEDICINE [address] [place], [place] [phone] Elin Rasheed MD [address] [place] [address] Sciatica of left side Social History Tobacco [...] side documented in this encounter Care Teams Wage Analyst Relationship Specialty Start Date End Date Elin Rasheed MD [address] [place] [address] [phone] PCP - General Family Medicine 03/26/20 documented as of this encounter
--- OUTSIDE RECORDS SUMMARY | 2025-01-27 19:23 | XMS_ITS | Encounter Summary ---
Author Organization [employer] Address [address] [facility] 7t [place] [address] Care Team Providers Care Telephone Triage Nurse Name Role Phone Elin Rasheed MD Primary Care Provider [phone] Encounter Details Date Type Department Care Team ([facility] st Contact Info) Description 11/22/2023 Orders Only [facility] MEDICINE [address] [place], [place] [phone] Elin Rasheed MD [address] [place], [place] [phone] Social History Tobacco Use Types Packs/Day Years [...] on filedocumented in this encounter Care Teams Telephone Triage Nurse Relationship Specialty Start Date End Date Elin Rasheed MD [address] [place] [address] PCP - General Family Medicine 03/26/20 documented as of this encounter
--- OUTSIDE RECORDS SUMMARY | 2025-01-27 19:23 | XMS_ITS | Encounter Summary ---
Author Organization [employer] Address [address] [place] [address] 7t [place] [address] Care Team Providers Care Organic Extractions Technician Name Role Phone Elin Rasheed MD Primary Care Provider [phone] Reason for Referral * Consultation (Routine) - Closed Specialty Diagnoses / Procedures Referred By Contac t Referred To Contact Physical Therapy Diagnoses Bulging of lumbar intervertebral disc Sciatica of left side Elin Rasheed MD [address] [place] [address] Phone: tel: fax: Physical Therapy, AT [address] [place] [address] Dr [address] [place], [place] Phone: tel: fax: Referral ID Status Reason Start Date Expiration Date V isits Requested Visits Authorized [id number] Closed Specialty Services Required 07/08/2023 07/07/2024 1 1 Encounter Details Date Type Department Care Team (Late st Contact Info) Description 07/08/2023 Orders Only [facility] MEDICINE [address] [place], [place] [phone] Elin Rasheed MD [address] [place], [place] [phone] Bulging of lumbar intervertebral disc (Primary Dx); [...] side documented in this encounter Care Teams Organic Extractions Technician Relationship Specialty Start Date End Date Elin Rasheed MD [address] [place] [address] PCP - General Family Medicine 03/26/20 documented as of this encounter
--- OUTSIDE RECORDS SUMMARY | 2025-01-27 19:23 | XMS_ITS | Encounter Summary ---
Author Organization [employer] Address [address] [facility] 7t [place] [address] Care Team Providers Care Tape Rules Printing Machine Operator Name Role Phone Elin Rasheed MD Primary Care Provider [phone] Encounter Details Date Type Department Care Team ([facility] st Contact Info) Description 12/12/2024 Orders Only [facility] MEDICINE [address] [place], [place] [phone] Elin Rasheed MD [address] [place], [place] [phone] Social History Tobacco Use Types Packs/Day Years [...] the past 12 months, has t he [facility], gas, oil or water company threatened to [...] documented as of this encounter Care Teams Tape Rules Printing Machine Operator Relationship Specialty Start Date End Date Elin Rasheed MD [address] [place] [address] PCP - General Family Medicine 03/26/20 documented as of this encounter
[2025-01-27 19:32] VITALS: BP 136/71; PULSE 98; RESP 18; TEMP 36.7; O2SAT 98
== END 2025-01-27 19:33 | disposition home or self-care (01) ==
PROVIDERS: Emergency Provider Emergency Medicine Emergency Medical Services; PCP General Practice
DX: Z48.00 Encounter for change or removal of nonsurgical wound dressing (principal); M79.644 Pain in right finger(s)
CPT/HCPCS: 99282